=== PATIENT | male | born 1955 | race Caucasian/White ===

== ENCOUNTER 2024-11-16 13:06 | Inpatient (IN) ==
[2024-11-16] MEDS ORDERED: STAT IV Infusion **Titration per Protocol STA ×4 (13:42→17:00)
[2024-11-16] MEDS ORDERED: EPINEPHrine/NSS 4 MG/254 ML BAG IV SCH (13:45)
[2024-11-16] MEDS ORDERED: SODIUM BICARBONATE 8.4% 150 MEQ in WATER, STERILE 1,000 ML IV SCH (14:00)
[2024-11-16] MEDS ORDERED: NOREPINEPHRINE/D5W 4 MG/250 ML PLCT IV SCH (14:00)
[2024-11-16 14:01] LABS: iSTAT Creatinine 1.6 mg/dl (0.6-1.3); iSTAT Hemoglobin 10.2 g/dl (14.0-18.0); iSTAT Ionized Calcium 2.05 mmol/l (1.12-1.32); iSTAT Potassium 3.2 mmol/L (3.3-5.0)
[2024-11-16 14:07] LABS: Basophils # (auto) 0.05 K/uL (0.00-0.20); Basophils % (auto) 0.4 %; Eosinophils % (auto) 0.8 %; Hematocrit (blood only) 44.1 % (42.0-52.0); Hemoglobin 14.9 g/dl (14.0-18.0); Immature Granulocytes # (auto) 0.13 K/uL (0.01-0.20); Immature Granulocytes % (auto) 1.1 %; Lymphocytes # (auto) 3.23 K/uL (1.20-3.40); Lymphocytes % (auto) 26.8 %; Mean Corpuscular Hemoglobin 30.7 pg (25.0-34.0); Mean Corpuscular Hgb Conc 33.8 g/dL (32.0-36.0); Mean Corpuscular Volume 90.7 fL (80.0-100.0); Mean Platelet Volume 10.4 fL (9.4-12.4); Monocytes # (auto) 0.86 K/uL (0.11-0.59); Monocytes % (auto) 7.1 %; Neutrophils # (auto) 7.68 K/uL (1.40-6.50); Neutrophils % (auto) 63.8 %; Platelet Count 185 K/uL (130-400); RDW Coefficient of Variation 12.9 % (11.5-14.5); Red Blood Count 4.86 M/uL (4.70-6.10); White Blood Count 12.05 K/ul (4.8-10.8)
[2024-11-16 14:10] LABS: iSTAT Art Bld Gas Base Excess > 30.0 meg/L (-9-1.8); iSTAT Arterial Blood Gas HCO3 77 meg/L (19-24); iSTAT Arterial Blood Gas pCO2 86 mmHg (35-46); iSTAT Arterial Blood Gas pH 7.56 (7.35-7.45); iSTAT Arterial Blood Gas pO2 302 mmHg (80-95); iSTAT Carbon Dioxide > 50 mmol/L (24-31); iSTAT Hematocrit 23 % (42-52); iSTAT Hemoglobin 7.8 g/dl (14.0-18.0); iSTAT Sodium 174 mmol/L (135-144)
[2024-11-16] MEDS ORDERED: PIPERACILLIN/TAZOBACTAM 4.5 GM/100 ML BAG IV ONE (14:13)
[2024-11-16 14:15] LABS: Alanine Aminotransferase 23 U/L (7-52); Albumin Globulin Ratio 1.7 (0.9-2); Albumin Level 4.2 gm/dl (3.4-5.0); Alkaline Phosphatase 73 U/L (34-104); Anion Gap 16 (3-11); Aspartate Aminotransferase 31 U/L (13-39); BUN Creatinine Ratio 12.4 (10-20); Bilirubin,Total 0.5 mg/dl (0.2-1.0); Blood Urea Nitrogen 20 mg/dl (6-23); Calcium 9.5 mg/dl (8.6-10.3); Carbon Dioxide 17 mmol/L (21-32); Chloride 106 mmol/L (98-107); Globulin 2.5 gm/dl (2.5-4.0); Glucose 274 mg/dl (70-99(Fasting)); Lipase 141 U/L (11-82); Potassium 3.9 mmol/L (3.5-5.1); Sodium 139 mmol/L (136-145); Total Protein 6.7 gm/dl (6.0-8.3)
--- NOTE | 2024-11-16 14:17 | Emergency Department Note ---
Impression & Plan Cardiac arrest, Aortic dissection, JORGE (acute kidney injury), High anion gap metabolic acidosis, Respiratory arrest, Acute pericardial effusion ED Provider Note NAME: LUIS PONCE AGE: 69 SEX: M : 1955 ARRIVES VIA: Ambulance INFORMANT: Patient, EMS and nursing reports, ED PROVIDER(S): Sameer Barr MD CHIEF COMPLAINT: Chest pain, shortness of breath MEDICAL DECISION MAKING: Patient presented due to concern for chest pain shortness of breath. The patient became apneic and did not have a pulse CODE BLUE was called and CPR was initiated by myself at the bedside. Respiratory arrived along with other staff including another physician Dr. Sabillon please refer to his note. ACLS protocols were initiated and the patient did have a line established IV epinephrine ordered in addition to bicarb and calcium. Patient appeared to be in a PEA. ACLS protocols were continued a bedside ultrasound was performed and I did intubate the patient at the bedside without issue. Bedside ultrasound per Dr. Sabillon did show significant pericardial effusion. There was concern that maybe the patient did have a dissection although ultimately not clear. Patient did have pericardiocentesis performed admitted the patient continuing with ACLS protocols and CPR although CPR was paused during the pericardiocentesis due to concerns for large needle and possible harm to staff. Patient was being ventilated during this time. Blood was removed from the pericardium. Patient was noted to be in a disorganized rhythm concerning for V-fib possibly even torsades. The patient was ordered IV amiodarone 300 mg. Patient was subsequently shocked 360 J biphasic. Compressions were resumed. Flexographic Press Operator Solomon Pradhan PA-C also did arrive. Continue protocols initiated along with additional ACLS medications given. Central line was placed in the right groin. Code heart alert was initiated as the patient did have a pulse in an organized rhythm. Epi drip was ordered. Patient did have an art line placed and prior to this the patient was also ordered Levophed drip. The patient's blood pressure was titrated to improve the patient's MAPs to 65. Bicarb drip also started. Patient does have sluggish pupillary response. Repeat ultrasounds showed improvement in the pericardial effusion and no evidence of significant tamponade pathology compared to prior. Patient did not have any evidence of obvious free fluid within the abdomen. RV did not appear to be dilated and thus PE was thought to be less likely. Discussion was had with Dr. Hampton and the patient was to be taken to the Customer Contact Representative. Additional management deferred to integration software developer and interventional cardiology services. Blood work showed white count of 11.9 with a hemoglobin of 10.5. Platelet count unremarkable. Patient with gas of 7.26. pCO2 of 302. pCO2 of 43. Potassium of 3.2. Creatinine 1.6. Troponin of 1300. Per review of notes after patient taken to Customer Contact Representative patient did have pericardial drain and fluid removed and findings concerning for aortic dissection. Patient transferred to [facility]. Critical Care: I have personally spent 95 minutes of critical care time in direct management of this patient. This includes bedside care, interpretation of diagnostic studies, and testing, discussion with consultants, patient, and family members, and other require inpatient management activities. This 95 minutes is in excess of all separately billable procedures. Procedures: Cardioversion performed by Dr. Barr Indication: V-fib Consent was implied and emergent given that the patient was pulseless and apneic. Patient noted to be in likely V-fib on the monitor. The biphasic defibrillator was set to 360 joules of energy. After confirmation of "all clear" safety check the synchronized shock was delivered. The patient was no longer in V-fib but in PEA and compressions were resumed. Endotracheal Intubation performed by Dr. Barr Indication: Hypoxemic respiratory failure, respiratory failure, cardiac arrest The patient was on hypoxic via NRB prior to the procedure. Suction, airway equipment, RSI drugs, respiratory equipment, and appropriate personnel were prepared prior to the initiation of the procedure. The airway was easily visualized utilizing a MAC 3 video laryngoscope. A 7.5 size ETT tube was placed atraumatically to 23 cm using standard technique. The cuff inflated without signs of malfunction. There were bilateral breath sounds, positive colormetric change, no gastric sounds, a good capnography waveform, and post procedure pulse oximetry was 99%. Post intubation sedation and paralysis was deferred to intensive care team. There were no complications. Chest compressions performed by Dr. Barr Indication: Cardiac arrest In standard fashion the patient did undergo chest compressions by myself for 2 minutes until pulse check. This was repeated by myself a second time with during this resuscitation. Limited Point of Care FAST Ultrasound performed by me: Indication: Cardiac arrest Findings: Limited cardiac ultrasonography via subxiphoid and parasternal long view showed cardiac wall motion activity, moderate pericardial effusion without tamponade. Limited chest ultrasound revealed bilateral lung sliding. Limited abdominal ultrasound revealed no free fluid within Morrisons pouch, splenorenal space, or the pouch of Mark. Discussion w/ other healthcare providers: Solomon Pradhan PA-C and Dr. Nelson intensive care unit Dr. Hampton tank truck mechanic Dr. Sabillon Prior /Outside records reviewed: Outside records were also obtained via case management recent office visit on September [address] Torrez history of hypertension hyperlipidemia lip melanoma lung cancer AAA and allergic rhinitis. Differential diagnosis: Cardiac ischemia, aortic dissection, pulmonary embolism, pneumothorax, pneumonia, pericarditis, myocarditis, GERD, cholecystitis, pancreatitis, musculoskeletal, as well as other pathologies were considered. Diagnostics, as interpreted by me: ECG: Normal sinus rhythm, rate of 81, normal intervals, normal axis no obvious ST elevations. Cardiac monitoring: An order was placed for continuous cardiac monitoring. The monitor shows a rate of 45 with PEA rhythm. Patient was placed on pulse oximetry Medical decision rules: None Imaging studies: I informally interpreted the patient's chest x-ray does show endotracheal tube present without obvious pneumothorax with formal report to follow. HPI: Very limited history. Patient had presented due to concern for shortness of breath and reportedly had called his boss saying that he felt that he was dying. Upon presenting to the room the patient appeared hypoxic with difficulty with breathing. The patient then became apneic and was pulseless. Patient was reportedly hypoxic on room air for EMS and was placed on a nonrebreather. Nursing did report that the patient reportedly had a pressure 126/102 for EMS with an SpO2 of 79%. Family did give the patient 324 of aspirin prior to arrival. Additional history obtained after the resuscitation with the patient had a pulse back but the patient reportedly was fine this morning of been out shopping but then when he was home he called his as well as his boss stating that he felt like he was going to and felt very short of breath. Patient reportedly did complain of chest pain. Patient does have reported prior history of AAA of the abdomen. No issues this morning and the patient reportedly had no symptoms prior. Outside records were also obtained via case management recent office visit on September [address] Rios history of hypertension hyperlipidemia lip melanoma lung cancer AAA and allergic rhinitis. PAST MEDICAL HISTORY: Hypertension, hyperlipidemia, lip melanoma, lung cancer, AAA PAST SURGICAL HISTORY: Unable to obtain secondary to clinical condition SOCIAL HISTORY: Unable to obtain secondary to clinical condition HOME MEDICATIONS: See Below ALLERGIES: See Below VITALS: See Below PHYSICAL EXAMINATION: GENERAL: Severe distress, nonrebreather in place. Cyanotic in appearance. EYE EXAM: Normal conjunctiva. PERRL, no anisocoria and EOM's grossly intact w/o pain. OROPHARYNX: Dry mucus membranes, grossly normal dentition. NECK: Trachea midline, no stridor. Supple, no nuchal rigidity, no adenopathy, non-tender. No signs of meningismus. FROM of the neck with good chin to chest and neck extension. LUNGS: Clear to auscultation. Normal chest wall mechanics. HEART: Bradycardic, no MRG. ABDOMEN: Abdomen soft, non-tender, no masses, no rebound or guarding. BACK: No CVA TTP. SKIN: No rashes and no bruising. UPPER EXTREMITIES: Upper extremities are grossly normal. LOWER EXTREMITIES: Grossly normal, no edema. NEURO EXAM: Does not open eyes to voice, moaning. Moves all 4 extremities. Past Med/Surg History Problem List (Updated 11/16/24 @ 19:51 by Sameer Barr MD) Acute pericardial effusion (Acute) Respiratory arrest (Acute) Cardiac arrest (Acute) Normocytic anemia High anion gap metabolic acidosis (Acute) COPD with emphysema JORGE (acute kidney injury) (Acute) Aortic dissection (Acute) Social History Smoking Status: Unknown if ever smoked Preferred Language: Swedish Pilot Instructor Required: No Beliefs That Will Affect Care: None Current Living Situation: Spouse Other Information That Helps Us Care for You: No Feels Safe at Home: Yes Safety Concerns: Feels Safe At This Time Results & Data (ED) Vital Signs Vital Signs - 24 hr 11/16/24 13:00 11/16/24 13:00 11/16/24 13:32 Temperature 35.6 C L Temperature Source Rectal Pulse Rate 91 H 0 L Pulse Rate from SpO2 Sensor Respiratory Rate Blood Pressure Blood Pressure Mean Pulse Oximetry Oxygen Delivery Method Non-rebreather Oxygen Flow Rate 15 Fraction of Inspired Oxygen Sepsis Recent Fever Within 48 Hours No Sepsis New/Unexplained Change in Mental Status N/A Sepsis Action Taken by Nursing No Action Required 11/16/24 13:36 11/16/24 13:39 11/16/24 13:42 Temperature Temperature Source Pulse Rate 41 L 63 69 Pulse Rate from SpO2 Sensor Respiratory Rate 17 Blood Pressure Blood Pressure Mean Pulse Oximetry Oxygen Delivery Method Oxygen Flow Rate Fraction of Inspired Oxygen Sepsis Recent Fever Within 48 Hours Sepsis New/Unexplained Change in Mental Status Sepsis Action Taken by Nursing 11/16/24 13:47 11/16/24 13:49 11/16/24 13:49 Temperature Temperature Source Pulse Rate Pulse Rate from SpO2 Sensor Respiratory Rate 24 Blood Pressure 60/41 L 60/41 L Blood Pressure Mean 46 46 Pulse Oximetry Oxygen Delivery Method Oxygen Flow Rate Fraction of Inspired Oxygen 100 Sepsis Recent Fever Within 48 Hours Sepsis New/Unexplained Change in Mental Status Sepsis Action Taken by Nursing 11/16/24 13:49 11/16/24 13:51 11/16/24 13:55 Temperature Temperature Source Pulse Rate 58 L Pulse Rate from SpO2 Sensor Respiratory Rate 23 Blood Pressure 60/41 L 60/50 L Blood Pressure Mean 46 54 Pulse Oximetry Oxygen Delivery Method Oxygen Flow Rate Fraction of Inspired Oxygen Sepsis Recent Fever Within 48 Hours Sepsis New/Unexplained Change in Mental Status Sepsis Action Taken by Nursing 11/16/24 13:55 11/16/24 13:55 11/16/24 13:57 Temperature Temperature Source Pulse Rate 71 Pulse Rate from SpO2 Sensor 93 H Respiratory Rate 26 H Blood Pressure 60/50 L 60/50 L Blood Pressure Mean 54 54 Pulse Oximetry 51 L Oxygen Delivery Method Oxygen Flow Rate Fraction of Inspired Oxygen Sepsis Recent Fever Within 48 Hours Sepsis New/Unexplained Change in Mental Status Sepsis Action Taken by Nursing 11/16/24 14:00 11/16/24 14:01 11/16/24 14:10 Temperature Temperature Source Pulse Rate 66 Pulse Rate from SpO2 Sensor Respiratory Rate 21 Blood Pressure 84/58 L 80/52 L Blood Pressure Mean 63 64 Pulse Oximetry Oxygen Delivery Method Oxygen Flow Rate Fraction of Inspired Oxygen Sepsis Recent Fever Within 48 Hours Sepsis New/Unexplained Change in Mental Status Sepsis Action Taken by Nursing 11/16/24 14:10 11/16/24 14:12 Temperature Temperature Source Pulse Rate 66 Pulse Rate from SpO2 Sensor 66 Respiratory Rate 18 Blood Pressure 80/52 L Blood Pressure Mean 64 Pulse Oximetry 100 Oxygen Delivery Method Oxygen Flow Rate Fraction of Inspired Oxygen Sepsis Recent Fever Within 48 Hours Sepsis New/Unexplained Change in Mental Status Sepsis Action Taken by [facility] Medications Current Medication List: was personally reviewed by me Laboratory Data Attestation: I reviewed the patient's lab results. 11/16/24 15:54 11/16/24 15:54 Lab Results 11/16/24 11/16/24 11/16/24 Range/Units 13:15 13:41 13:46 WBC 12.05 H (4.8-10.8) K/ul RBC 4.86 (4.70-6.10) M/uL Hgb 14.9 (14.0-18.0) g/dl POC Hgb 10.2 L (14.0-18.0) g/dl Hct 44.1 (42.0-52.0) % POC Hct 30 L (42-52) % MCV 90.7 (80.0-100.0) fL MCH 30.7 (25.0-34.0) pg MCHC 33.8 (32.0-36.0) g/dL RDW Std Deviation 43.0 (36.4-46.3) fL RDW Coeff of Navarro 12.9 (11.5-14.5) % Plt Count 185 (130-400) K/uL MPV 10.4 (9.4-12.4) fL Immature Gran % (Auto) 1.1 % Neut % (Auto) 63.8 % Lymph % (Auto) 26.8 % [place] % (Auto) 7.1 % Eos % (Auto) 0.8 % Baso % (Auto) 0.4 % Neut # (Auto) 7.68 H (1.40-6.50) K/uL Lymph # (Auto) 3.23 (1.20-3.40) K/uL [place] # (Auto) 0.86 H (0.11-0.59) K/uL Eos # (Auto) 0.10 (0.00-0.50) K/uL Baso # (Auto) 0.05 (0.00-0.20) K/uL Immature Gran # (Auto) 0.13 (0.01-0.20) K/uL POC pH (7.35-7.45) POC pCO2 (35-46) mmHg POC pO2 (80-95) mmHg POC HCO3 (19-24) rosa/L POC Base Excess (-9-1.8) rosa/L POC ABG O2 Sat (90-95) % POC Sodium 136 (135-144) mmol/L Sodium 139 (136-145) mmol/L POC Potassium 3.2 L (3.3-5.0) mmol/L Potassium 3.9 (3.5-5.1) mmol/L POC Chloride 105 (101-112) mmol/L Chloride 106 (98-107) mmol/L Carbon Dioxide 17 L (21-32) mmol/L POC Total CO2 21 L (24-31) mmol/L Anion Gap 16 H (3-11) POC Anion Gap 15.0 L (16-25) mmol/L POC BUN 20 H (7-18) mg/dl BUN 20 (6-23) mg/dl Creatinine 1.61 H (0.6-1.4) mg/dl POC Creatinine 1.6 H (0.6-1.3) mg/dl Est Cr Clr Drug Dosing Not Reportable eGFR 46.58 BUN/Creatinine Ratio 12.4 (10-20) Glucose 274 H (70-99(Fasting)) mg/dl POC Glucose (other) 381 H* (70-99) mg/dl Calcium 9.5 (8.6-10.3) mg/dl POC Ioniz Calcium Leida 2.05 H* (1.12-1.32) mmol/l Total Bilirubin 0.5 (0.2-1.0) mg/dl AST 31 (13-39) U/L ALT 23 (7-52) U/L Alkaline Phosphatase 73 (34-104) U/L Troponin I High Sens 54.9 H* (0-20) pg/ml Total Protein 6.7 (6.0-8.3) gm/dl Albumin 4.2 (3.4-5.0) gm/dl Globulin 2.5 (2.5-4.0) gm/dl Albumin/Globulin Ratio 1.7 (0.9-2) Lipase 141 H (11-82) U/L Blood Type O Positive Antibody Screen NEGATIVE Crossmatch See Detail 11/16/24 Range/Units 13:57 WBC (4.8-10.8) K/ul RBC (4.70-6.10) M/uL Hgb (14.0-18.0) g/dl POC Hgb 7.8 L (14.0-18.0) g/dl Hct (42.0-52.0) % POC Hct 23 L (42-52) % MCV (80.0-100.0) fL MCH (25.0-34.0) pg MCHC (32.0-36.0) g/dL RDW Std Deviation (36.4-46.3) fL RDW Coeff of Navarro (11.5-14.5) % Plt Count (130-400) K/uL MPV (9.4-12.4) fL Immature Gran % (Auto) % Neut % (Auto) % Lymph % (Auto) % [place] % (Auto) % Eos % (Auto) % Baso % (Auto) % Neut # (Auto) (1.40-6.50) K/uL Lymph # (Auto) (1.20-3.40) K/uL [place] # (Auto) (0.11-0.59) K/uL Eos # (Auto) (0.00-0.50) K/uL Baso # (Auto) (0.00-0.20) K/uL Immature Gran # (Auto) (0.01-0.20) K/uL POC pH 7.56 H* (7.35-7.45) POC pCO2 86 H (35-46) mmHg POC pO2 302 H (80-95) mmHg POC HCO3 77 H (19-24) rosa/L POC Base Excess > 30.0 H (-9-1.8) rosa/L POC ABG O2 Sat 100.0 H (90-95) % POC Sodium 174 H* (135-144) mmol/L Sodium (136-145) mmol/L POC Potassium 3.0 L (3.3-5.0) mmol/L Potassium (3.5-5.1) mmol/L POC Chloride (101-112) mmol/L Chloride (98-107) mmol/L Carbon Dioxide (21-32) mmol/L POC Total CO2 > 50 H* (24-31) mmol/L Anion Gap (3-11) POC Anion Gap (16-25) mmol/L POC BUN (7-18) mg/dl BUN (6-23) mg/dl Creatinine (0.6-1.4) mg/dl POC Creatinine (0.6-1.3) mg/dl Est Cr Clr Drug Dosing eGFR BUN/Creatinine Ratio (10-20) Glucose (70-99(Fasting)) mg/dl POC Glucose (other) (70-99) mg/dl Calcium (8.6-10.3) mg/dl POC Ioniz Calcium Leida (1.12-1.32) mmol/l Total Bilirubin (0.2-1.0) mg/dl AST (13-39) U/L ALT (7-52) U/L Alkaline Phosphatase (34-104) U/L Troponin I High Sens (0-20) pg/ml Total Protein (6.0-8.3) gm/dl Albumin (3.4-5.0) gm/dl Globulin (2.5-4.0) gm/dl Albumin/Globulin Ratio (0.9-2) Lipase (11-82) U/L Blood Type Antibody Screen Crossmatch Administered Medications Discontinued Medications Amiodarone HCl/Dextrose (Amiodarone 360mg / 200ml D5w) Confirm Administered Dose 360 mg IV .[facility]-MED ONE Stop: 11/16/24 14:13 Last Admin: 11/16/24 16:04 Dose: 360 mg Documented By: NICOLE Co-signed By: RAF Fentanyl Citrate (Fentanyl Citrate Pf 100 Mcg/2 Ml Vial) Confirm Administered Dose 100 mcg .ROUTE .[facility]-MED ONE Stop: 11/16/24 14:00 Last Admin: 11/16/24 16:02 Dose: 25 mcg Documented By: NICOLE Heparin Sodium (Porcine) (Heparin (Porcine) 1000 Unit/Ml 10 Ml (Customer Contact Representative Use Only)) Confirm Administered Dose 10,000 units .ROUTE .[facility]-MED ONE Stop: 11/16/24 14:00 Last Admin: 11/16/24 16:03 Dose: Not Given Documented By: NICOLE Heparin Sodium/Sodium Chloride (Heparin In Nss Infusion 1000 Unit/500 Ml (2 U/Ml) Bag) Confirm Administered Dose 3,000 units IV .STK-MED ONE Stop: 11/16/24 14:00 Last Admin: 11/16/24 15:07 Dose: 3,000 units Documented By: MARTY Ioversol (Optiray 350) Confirm Administered Dose 1 ml .ROUTE .STK-MED ONE Stop: 11/16/24 14:00 Last Admin: 11/16/24 16:03 Dose: 120 ml Documented By: MARTY Ioversol (Optiray 320 125ml) 119 ml IV ONCE ONE Stop: 11/16/24 16:20 Last Admin: 11/16/24 16:19 Dose: 119 ml Documented By: AMINTA Midazolam HCl (Midazolam Hcl 1 Mg/Ml 2ml Vial) Confirm Administered Dose 2 mg .ROUTE .STK-MED ONE Stop: 11/16/24 14:00 Last Admin: 11/16/24 16:03 Dose: 1 mg Documented By: NICOLE Nicardipine HCl (Nicardipine Hcl Inj 2.5 Mg/Ml 10 Ml Amp) Confirm Administered Dose 25 mg .ROUTE .STK-MED ONE Stop: 11/16/24 14:01 Last Admin: 11/16/24 16:04 Dose: 25 mg Documented By: MARTY Nitroglycerin/Dextrose (Nitroglycerin/D5w 100mcg/Ml 20ml Syr) Confirm Administered Dose 2,000 mcg .ROUTE .STK-MED ONE Stop: 11/16/24 14:00 Last Admin: 11/16/24 16:03 Dose: 2,000 mcg Documented By: MARTY Imaging Data Radiologist's Impression: Chest X-Ray 11/16/24 13:42 PORTABLE SUPINE AP CHEST RADIOGRAPH CLINICAL HISTORY: Chest pain, nonspecific COMPARISON STUDY: No previous studies for comparison. FINDINGS: Tip of endotracheal tube is 3.3 cm above the doron. No pneumothorax is identified on supine exam. No pleural effusion is identified. Cardiac size is normal. Surgical staple line projects over the right hilum. Abnormal contour of the right mediastinal, possibly representing the ascending aorta or right hilum is noted. There is also prominence of the left mediastinal contour, superior to the hilum. Mild interstitial thickening is present without overt pulmonary edema. IMPRESSION: 1. Tip of endotracheal tube 3.3 cm above the doron. 2. Abnormal mediastinal contours, as described above. These may be vascular in etiology although lymphadenopathy could appear similar. CTA of the chest is recommended for further evaluation. 3. Pulmonary vascular congestion without overt pulmonary edema. ACT 112: Negative or not required by law. Electronically signed by: Sherman Siddiqui M.D. 11/16/2024 2:26 PM Discharge Plan Visit Data Chief Complaint: Chest Pain Stated Complaint: CHEST PAIN ED Provider: Sameer Barr Discharge Problem: Cardiac arrest, Aortic dissection, JORGE (acute kidney injury), High anion gap metabolic acidosis, Respiratory arrest, Acute pericardial effusion Patient Disposition: Admitted As Inpatient Discharge Problem: Aortic dissection Qualifiers: Aortic location: thoracoabdominal aorta Qualified Code(s): I71.03 - Dissection of thoracoabdominal aorta
--- NOTE | 2024-11-16 14:26 | Procedure Note ---
Procedure Note Date of Service November 16, 2024 Procedure: Femoral Central Line Placement Attending: Dr. Nelson APC: Solomon Pradhan PA-C Indication: Central Drug Administration, Poor Venous Access, Multiple Lab Draws Necessary, etc. Anesthesia: None Emergent consent implied in the setting of actively coding patient with poor peripheral access, need for blood draws, need for resuscitative medications, etc. Should be noted that line was placed in suboptimal sterile conditions in a patient with active extremis and need for emergent central access. A time-out was completed verifying correct patient, procedure, site, positioning, and implants(s) or special equipment if applicable. Patient's RIGHT Groin was cleansed and draped in the typical sterile fashion using Chloraprep. The Femoral Vein and Femoral Artery were identified using ultrasound. The Femoral Vein was cannulated under direct ultrasound guidance using an introducer needle on a syringe. Good venous blood return was maintained prior to removal of syringe from introducer needle. Using Seldinger Technique, a guide wire was advanced through the introducer needle without resistance. The introducer needle was removed and ultrasound images were obtained of the guide wire within the Femoral Vein and saved to the patient's medical record. A small incision was made in penetrating fashion at the guide wire insertion site utilizing an 11 blade scalpel. The dilator was advanced to the vessel without resistance. The dilator was exchanged for the triple lumen catheter which was advanced into the vessel without resistance. The guide wire was removed intact from the catheter without issue. Claves were placed on each catheter tip with confirmation of good blood flow from each lumen. Each port was easily flushed with sterile saline. The catheter was placed at the hub and sutured in place. BioPatch was applied to the catheter and a sterile Tegaderm dressing was applied over the catheter with careful attention to sterility. Patient tolerated procedure well. No immediate complications were met. Images obtained are saved for permanent record Procedural Ultrasound Guidance: Procedure Date: 11/16/2024 Indication: CODE BLUE, Poor peripheral access, need for lab draws, etc. Attending: Dr. Nelson APC: Solomon Pradhan PA-C Artery AND Vein visualized: YES Compressible Vein: YES Guidewire or Short Catheter seen in vein prior to dilation: YES Line confirmed in Vein with ultrasound: YES Images obtained are saved for permanent record. [facility] [place] Procedure Codes (Charges) Tubes, Drains, and Vasc Access Procedure 1: Tubes, Drains, and Vasc Access: [id number] Insertion Of Non-tunneled Catheter Age 7 Yrs> Coding CPT Codes Tubes, Drains, and Vasc Access - Tubes, Drains, and Vasc Access: [id number] Insertion Of Non-tunneled Catheter Age 7 Yrs> ([id number]) Additional Codes Date of Service ([email or web address])
--- NOTE | 2024-11-16 14:28 | XRay Report ---
PORTABLE SUPINE AP CHEST RADIOGRAPH CLINICAL HISTORY: Chest pain, nonspecific COMPARISON STUDY: No previous studies for comparison. FINDINGS: Tip of endotracheal tube is 3.3 cm above the doron. No pneumothorax is identified on supin e exam. No pleural effusion is identified. Cardiac size is normal. Surgical staple line projects over the right hilum. Abnormal contour of the right mediastinal, possibly representing the ascending aort a or right hilum is noted. There is also prominence of the left mediastinal contour, superior to the hilum. Mild interstitial thickening is present without overt pulmonary edema. IMPRESSION: 1. Tip of endotracheal tube 3.3 cm above the doron. 2. Abnormal mediastinal contours, as described above. These may be vascular in etiology although lymp hadenopathy could appear similar. CTA of the chest is recommended for further evaluation. 3. Pulmonary vascular congestion without overt pulmonary edema. ACT 112: Negative or not required by law. Electronically signed by: Sherman Siddiqui M.D. 11/16/2024 2:26 PM
--- NOTE | 2024-11-16 14:28 | Procedure Note ---
Procedure Note Date of Service November 16, 2024 Procedure: Arterial Line Placement Attending: Dr. Nelson APC: Solomon Pradhan PA-C Indication: Hemodynamic monitoring Anesthesia: None Emergent Consent implied in the setting of active extremis and need for close hemodynamic monitoring, ABG monitoring, frequent lab draws, etc. A time-out was completed verifying correct patient, procedure, site, positioning, and implant(s) or special equipment if applicable. Gregory's test was performed to ensure adequate perfusion. Patient's LEFT wrist was prepped and draped in the usual sterile fashion. Ultrasound guidance was used to aid needle placement. An 18 g Arrow arterial line was introduced into the LEFT Radial artery. Catheter was threaded, and the needle was removed with appropriate blood return. Good waveform was observed. The patient tolerated the procedure well. Confirmation of placement with ultrasound. Blood Loss: Minimal Complications: None Procedural Ultrasound Guidance: Procedure Date: 11/16/2024 Indication: Hemodynamic Monitoring, Frequent ABGs/Lab draws. Attending: Dr. Nelson APC: Solomon Pradhan PA-C Artery Identified: YES Line confirmed in Artery with ultrasound: YES Complications: NONE Patient tolerated procedure: [facility] Procedure Codes (Charges) Tubes, Drains, and Vasc Access Procedure 1: Tubes, Drains, and Vasc Access: [id number] Arterial Cath/Cannulation Sampling/Monitoring/Transfusion Coding CPT Codes Tubes, Drains, and Vasc Access - Tubes, Drains, and Vasc Access: [id number] Arterial Cath/Cannulation Sampling/Monitoring/Transfusion ([id number]) Additional Codes Date of Service (PG.SURGERY)
[2024-11-16 14:35] LABS: Troponin I High Sensitivity 54.9 pg/ml (0-20)
[2024-11-16] MEDS ORDERED: VASOPRESSIN 20 UNITS in SODIUM CHLORIDE 0.9% 100 ML IV SCH (14:45)
[2024-11-16] MEDS ORDERED: SODIUM CHLORIDE 0.9% 50 ML IV PRN (15:31)
[2024-11-16] MEDS ORDERED: SODIUM CHLORIDE 0.9% 100 ML IV PRN (15:31)
[2024-11-16] MEDS: fentaNYL citrate PF 100 MCG/2 ML VIAL ONE (16:02)
--- NOTE | 2024-11-16 16:02 | Emergency Department Note ---
ED Visit Note Came into the patient's room during CODE BLUE to assist Dr. Barr. Patient was actively coding while Dr. Barr was resuscitating him. Dr. Barr was doing airway and I placed the ultrasound probe on the patient's chest to look for cardiac activity. There is a large pericardial effusion. During the code a blind pericardiocentesis was attempted and 10 cc of blood removed. After Dr. Barr was able to get a pulse back on the patient intubate the patient repeat pericardiocentesis performed x 2 which removed 30 cc of blood each time. After the last pericardiocentesis in conjunction with Dr. Barr's resuscitative measures, the patient was stabilized with a good oxygen saturation on the ventilator stable heart rate and rhythm and blood pressure that was improving. The patient was evaluated by Dr. Hampton at bedside there is still some pericardial effusion present when Dr. Hampton arrived however it was improved and the right ventricular did appear off and not collapsed. Dr. Hampton stated to take the patient to the Video Rental Clerk for a emergent pericardial drain or window as well as catheterization. See Dr. Barr's notes for full course. Procedure note: Pericardiocentesis Indication: Large pericardial effusion during cardiac arrest Physician: Ridge Description: Pericardial effusion was viewed with bedside ultrasound best viewed in the subxiphoid view but also seen in the apical view. Large spinal needle was obtained and inserted beneath the xiphoid process directed towards the patient's left shoulder with continuous aspiration. Blood was returned. This was performed a total of 3 times the first time while the patient was actively being coded and 10 cc of blood was obtained, the second 2 x 30 cc of blood were obtained each time. Disposition: Cardiac Video Rental Clerk. .
[2024-11-16] MEDS: OPTIRAY 350 ONE (16:03)
[2024-11-16] MEDS: NITROGLYCERIN/D5W 100MCG/ML 20ML SYR ONE (16:03)
[2024-11-16] MEDS: HEPARIN (PORCINE) 1000 UNIT/ML 10 ML (CATH LAB USE ONLY) ONE (16:03)
[2024-11-16] MEDS: MIDAZOLAM HCL 1 MG/ML 2ML VIAL ONE (16:03)
[2024-11-16] MEDS: niCARdipine HCL INJ 2.5 MG/ML 10 ML AMP ONE (16:04)
[2024-11-16] MEDS: AMIODARONE 360MG / 200ML D5W IV ONE (16:04)
[2024-11-16 16:12] LABS: iSTAT Arterial Blood Gas HCO3 19 meg/L (19-24); iSTAT Arterial Blood Gas pCO2 43 mmHg (35-46); iSTAT Arterial Blood Gas pH 7.26 (7.35-7.45); iSTAT Arterial Blood Gas pO2 380 mmHg (80-95); iSTAT Carbon Dioxide 20 mmol/L (24-31); iSTAT Hematocrit 31 % (42-52); iSTAT Hemoglobin 10.5 g/dl (14.0-18.0); iSTAT Potassium 2.9 mmol/L (3.3-5.0); iSTAT Sodium 141 mmol/L (135-144)
[2024-11-16 16:13] LABS: iSTAT Arterial Blood Gas HCO3 19 meg/L (19-24); iSTAT Arterial Blood Gas pCO2 41 mmHg (35-46); iSTAT Arterial Blood Gas pH 7.27 (7.35-7.45); iSTAT Arterial Blood Gas pO2 371 mmHg (80-95); iSTAT Carbon Dioxide 20 mmol/L (24-31); iSTAT Hematocrit 31 % (42-52); iSTAT Hemoglobin 10.5 g/dl (14.0-18.0); iSTAT Sodium 140 mmol/L (135-144)
[2024-11-16 16:15] LABS: Hematocrit (blood only) 34.3 % (42.0-52.0); Hemoglobin 11.4 g/dl (14.0-18.0); Mean Corpuscular Hemoglobin 30.5 pg (25.0-34.0); Mean Corpuscular Hgb Conc 33.2 g/dL (32.0-36.0); Mean Corpuscular Volume 91.7 fL (80.0-100.0); Mean Platelet Volume 9.9 fL (9.4-12.4); Platelet Count 143 K/uL (130-400); RDW Coefficient of Variation 13.2 % (11.5-14.5); Red Blood Count 3.74 M/uL (4.70-6.10); White Blood Count 11.99 K/ul (4.8-10.8)
[2024-11-16] MEDS: OPTIRAY 320 125ml IV ONE (16:19)
[2024-11-16] MEDS ORDERED: ICU Protocol for HYPERglycemia SCH (16:30)
--- NOTE | 2024-11-16 16:38 | Critical Care Consultation ---
Date of Consultation November 16, 2024 Assessment & Plan (1) Aortic dissection: (2) JORGE (acute kidney injury): (3) COPD with emphysema: (4) High anion gap metabolic acidosis: (5) Normocytic anemia: Plan Reason Critically Ill: 69-year-old male past medical history of COPD was admitted to the hospital because of chest pain and shortness of breath He had a cardiac arrest in the ED, he was taken to [facility] where he did have pericardial effusion which was drained CTA chest 11/16/2024 personally reviewed: Centrilobular emphysema appreciated bilaterally Type B dissection appreciated going from the ascending aorta into the descending aorta and probably into abdominal aorta as well No significant mediastinal lymphadenopathy Neuro - [facility] ICU: Unable to assess --Patient did have cardiac arrest in the hospital CPR was started within 2 minutes Unfortunately pupils are dilated and very sluggish response Patient is breathing over the went Cardiac - --S/p cardiac arrest Secondary to type a dissection Continue with vasopressor support to keep MAP greater than 65 -- Type a aortic dissection Dissection seems to going into the abdominal aorta as well Goal is to have heart rate less than 60 and SBP around 100, it will be difficult as the patient needs vasopressor support but we will try our best Cardiothoracic surgery at [place] have accepted the patient and will be transferred --Pericardial effusion Likely secondary to type a aortic dissection Pericardial drain is in place but is not open, if patient has tamponade like physiology then it can be open and pericardial fluid drained Respiratory - -- VDRF Likely secondary to cardiac arrest Continue with ventilatory support Keep RASS -1 Daily sedation holidays and SBT's Chlorhexidine mouthwash GI - -- Elevated lipase I do not think patient has acute pancreatitis Cardiac arrest can also give elevated lipase levels RENAL/LYTES - -- JORGE on CKD The aortic dissection is involving the renal arteries as well which could be one of the reasons for JORGE Monitor BUN/creatinine Avoid nephrotoxic medications Strict ins and outs ENDO - -- ICU hypoglycemia protocol HEME - -- Normocytic anemia Monitor H&H ID - -- No clear source of infection --Prophylaxis VTE: IPC GI: None Lines: Right femoral TLC, left femoral arterial Diet: N.p.o. Plan: Continue with vasopressor support try to keep heart rate between 50 and 60, SBP 100. Will try to titrate down on epi and nor epi gradually Follow-up ABG Potassium being replaced. Follow-up magnesium and phosphorus Patient is hyperglycemic, will start him on non-DKA insulin drip Patient's care was coordinated and discussed with interventional cardiology, cardiology. I have personally spent 68 minutes of critical care time in the direct management of this patient. This is a life/limb threatening event. This includes time spent evaluating patient, direct bedside care, chart review, placing orders, interpretation of diagnostic studies, discussion with consultants, patient, and family members, as well as other required patient management activities. This time is exclusive of all separately billable procedures, and teaching time and separate from and in addition to any other critical care service time. 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 Maintaining his blood pressure systolic in the 110s, heart rate was in the mid 60s when he came to the ICU He was breathing over the vent but he was double triggering. He was hypothermic. On the way patient did have a CTA chest done, I personally looked at the images and there seems to be titrated dissection going into the abdominal aorta and into the renal arteries. Patient does seems to have COPD with emphysema as well. Review of Systems 2 Review of Systems: Unobtainable due to endotracheal tube Physical Exam 2 Physical Exam: Constitutional: No acute distress HEENT: Pupils are dilated bilaterally with minimal sluggish response Respiratory system: Decreased air entry bilaterally, no wheeze, rhonchi, positive crackles bilaterally CVS: S1-S2 positive, positive 2 out of 6 systolic murmur best at aorta Abdomen: Soft, nontender, nondistended, positive bowel sounds x4 Extremities: +2 pulses bilaterally radialis/ dorsalis pedis, no cyanosis, no edema Neuro: Sedated, breathing over the vent, trying to move the right extremity, does not follow any commands Psych: Unable to assess G/U: Positive Abrams Skin: no rashes, warm and dry Lymphatic: no cervical or axillary lymphadenopathy Results & Data Results & Data Vital Signs (Past 12 Hours) Vital Signs Temp Pulse Resp O2 Del Method O2 Flow Rate FiO2 11/16/24 13:47 24 100 11/16/24 13:39 63 11/16/24 13:36 41 L 11/16/24 13:32 0 L 11/16/24 13:00 Non-rebreather 15 11/16/24 13:00 35.6 C L 91 H Laboratory Results 11/16/24 15:54 Coding Level of Care Code 26203 CRITICAL CARE 1ST 30-74M Diagnoses Aortic dissection I71.00 JORGE (acute kidney injury) N17.9 COPD with emphysema J43.9 High anion gap metabolic acidosis E87.29 Normocytic anemia D64.9
--- NOTE | 2024-11-16 16:42 | CT Scan Report ---
EXAM: CT Head Without Intravenous Contrast INDICATION: Arrest. TECHNIQUE: Axial computed tomography images of the head/brain without intravenous contrast. Sagittal and/or coronal reformats are provided. Sagittal and coronal reformatted images were created and reviewed. This CT exam was performed using one or more of the following dose reduction techniques: automated exposure control, adjustment of the mA and/or kV according to patient size, and/or use of iterative reconstruction technique. COMPARISON: No relevant prior studies available. FINDINGS: Limitations: None. Brain and extra-axial spaces: No abnormality noted. No hemorrhage. No significant white matter disease. No edema. No ventriculomegaly. Bones/joints: No acute changes. Soft tissues: No significant abnormality noted. Vasculature: No acute abnormality noted. Sinuses: No layering fluid in the visualized portions of the paranasal sinuses. Mastoid air cells: No mastoid effusion. Orbits: No significant abnormality noted. IMPRESSION: No abnormality noted. ACT 112: Negative or not required by law. Electronically signed by Carolyn Crespo 11-16-2024 4:42 PM
[2024-11-16 16:47] LABS: INR 1.8 (0.9-1.1); Partial Thromboplastin Ratio 2.2; Partial Thromboplastin Time 58 Seconds (21-31); Prothrombin Time 18.6 Seconds (9.0-12.0)
[2024-11-16 16:48] LABS: Anion Gap 15 (3-11); BUN Creatinine Ratio 13.7 (10-20); Blood Urea Nitrogen 22 mg/dl (6-23); Calcium 9.8 mg/dl (8.6-10.3); Carbon Dioxide 21 mmol/L (21-32); Chloride 106 mmol/L (98-107); Glucose 461 mg/dl (70-99(Fasting)); Potassium 3.2 mmol/L (3.5-5.1); Sodium 142 mmol/L (136-145)
--- NOTE | 2024-11-16 16:50 | CT Scan Report ---
EXAM: CT Angiography Chest Without and With Intravenous Contrast INDICATION: Arrest. Evaluate for dissection. TECHNIQUE: Axial computed tomographic angiography images of the chest without and with intravenous contrast. Sagittal and coronal reformatted images were created and reviewed. This CT exam was performed using one or more of the following dose reduction techniques: automated exposure control, adjustment of the mA and/or kV according to patient size, and/or use of iterative reconstruction technique. MIP reconstructed images were created and reviewed. CONTRAST: 119ml of Optiray 320 was administered intravenously. COMPARISON: No relevant prior studies available. FINDINGS: Pulmonary arteries: No pulmonary embolus noted. Aorta: Type A aortic dissection beginning at the root extending into the left subclavian and carotid arteries and the brachiocephalic trunk. The ascending aorta is dilated to 4.6 cm. Dissection is followed to the hiatus. No hemorrhage. Lungs and pleural spaces: Centrilobular emphysematous changes present. There is mild dependent atelectasis in both lung bases. Trace bilateral pleural effusions. No pneumothorax. No mass. Heart: Enlarged. Small hemopericardium noted. No evidence of RV dysfunction. Bones/joints: No acute or atypical chronic changes. Soft tissues: No abnormality noted. Lymph nodes: No abnormality noted. No enlarged lymph nodes. Tubes, lines and devices: Endotracheal tube in good position. IMPRESSION: 1. Type A aortic dissection with 4.6 cm aneurysm of the ascending segment and hemopericardium. No active hemorrhage noted. 2. Emphysema. ACT 112: Negative or not required by law. Electronically signed by Carolyn Crespo 11-16-2024 4:49 PM
--- NOTE | 2024-11-16 16:54 | Cardiac Catheterization ---
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 Cardiac Status Clinical evaluation leading to the procedure CAD Presenation: STEMI Diagnostic Physicians Name: Mehran Hampton MD Closure Device Recommendations: Management Recommendatons (CTA, Tertiary center transfer) Cardiac Cath Procedure Full Procedure Date November 16, 2024 Pre-Procedure Diagnosis Pre-Procedure Diagnosis: STEMI AUC Score AUC Score: 9 Post-Procedure Diagnosis Post-Procedure Diagnosis: Mild CAD and Cardiothoracic Finding (Type A thoracic dissection) Procedure(s) Performed Procedure(s) Performed: Coronary Angiography, Left Heart Cath, Ultrasound Guided Vascular Access, Pericardiocentesis, Aortography, Femoral Artery Angiography and Radial Artery Angiography Supervisor Tumbling And Rolling Mehran Hampton MD Licensed Psychiatric Technician(s) Phil Estimated Blood Loss Estimated Blood Loss: 10 Medication(s) Medication(s): Epinephrine, Fentanyl, Lidocaine 1%, Norepinephrine and Versed Medication(s): Amiodarone Summary of Findings Indication: Cardiac arrest with reported ST elevation on telemetry post ROSC. New pericardial effusion post beside tamponade. Access: 6Fr LT HELP DESK REPRESENTATIVE under ultrasound guidance. 6Fr RT radial artery. 6Fr RT ulnar artery under ultrasound guidance Catheters: Pigtail, EBU3.5 guide, [place] Findings: LM - Normal caliber, no significant disease LAD - Medium caliber, proximal luminal irregularities. Mid to distal vessel without significant disease as wraps around apex. D1 with luminal irregularities. Circumflex - Medium caliber, proximal luminal irregularities. 20-30% proximal disease in medium high OM1. Medium OM2 without significant disease. 4 RCA - Dominant, medium caliber, 30% mid segment disease. Distal vessel, RPDA without significant disese. LVEDP - 17 Arterial Closure: TR Band. LT HELP DESK REPRESENTATIVE sheath left in place. Initial access from LT HELP DESK REPRESENTATIVE artery under ultrasound guidance. Noted to have sluggish distal flow downstream from sheath. Aortogram showed AAA with no minimal flow into RT external iliac artery. Catheter navigated to aortic root. Unable to cannulate coronaries and injection through pigtail suggested placement into dissection flap. RT radial artery cannulated under ultrasound guidance. Severe diffuse radial artery disease and unable to navigate wire into brachial artery. RT ulnar artery cannulated and catheter placed over wire to aortic root. LHC and coronary angiography performed. Echocardiogram performed while on optical lab technician table showed dilated aortic root with possible dissection flap and at least moderate AI. Pericardial effusion reaccumulating over course of procedure and decision to proceed with pericardiocentesis prior to Chest CTA to confirm dissection. Under echo guidance micropuncture needle directed into pericardial space. Position confirmed with agitated saline contrast injection. 6Fr sheath placed into pericardial space and 6Fr pigtail placed through sheath. Removed 150ml of bloody fluid. Repeat ultrasound confirmed only trace residual fluid. Summary: 1. Apparent type A thoracic dissection with resulting pericardial effusion 2. Mild coronary artery disease - 20-30% proximal OM1 - 30% mid RCA - Luminal irregularities in proximal LAD 2. Borderline intracardiac filling pressure (LVEDP 17). 4. Successful echo guided pericardiocentesis with removal of 150ml bloody fluid. Recommendations: Chest CTA and likely transfer to [facility] for Cardiothoracic surgery evaluation. Hemodynamics Rest Ao:: 96/76/59 Final Ao: 88/52/64 LV: 129/17 Recommendations Recommendations: Management Recommendatons (CTA, Tertiary center transfer) Radiation Exposure (mGy) 628 Contrast (mls) 120 Drains Drains: pericardial drain Anesthesia Moderate 8963-0063 Procedural Complication(s) None Disposition ICU I attest to the content of the Intraoperative Record and any orders documented therein. Any exceptions are noted below. [email or web address] Card Cath Procedure Codes Cardiac Catheterization Procedure 1: Cardiovascular Cath Procedures: 72776 Coronaries and LHC (+/-LV) Therapeutic Services & Ancillary Procedure 1: Cardiovascular Tx and Anc Procedures: 71818 Pericardiocentesis w / Imaging Procedure 2: Cardiovascular Tx and Anc Procedures: 69349 Ultrasonic Guidance Vascular Access Procedure 3: Cardiovascular Tx and Anc Procedures: 28898 Ultrasonic Guidance Vascular Access Moderate Sedation Procedure 1: Sedation/Anesthesia: 15074 Mod Sedation by the same physician;Init15 Min Child Age 5 & Up Procedure 2: Sedation/Anesthesia: 49386 Mod Sedation by the same physician; Ea [id number] Minutes Vascular Charges Angiography/Venography Procedure 1: Angiography/Venography charges: 61053 Aortography, abd + b/l iliofem LE, catheter, radiological S&I PG Care Time/CCT Total # of Minutes Spent Total Time Spent with Patient: Total time spent is greater than 50% in coordination of care (as documented) at patient's floor/unit and/or counseling patient:
--- NOTE | 2024-11-16 16:57 | CT Scan Report ---
EXAM: CT Angiography Abdomen With Intravenous Contrast INDICATION: TECHNIQUE: Axial computed tomographic angiography images of the abdomen with intravenous contrast. Sagittal and coronal reformatted images were created and reviewed. This CT exam was performed using one or more of the following dose reduction techniques: automated exposure control, adjustment of the mA and/or kV according to patient size, and/or use of iterative reconstruction technique. MIP reconstructed images were created and reviewed. CONTRAST: 119ml of Optiray 320 was administered intravenously. COMPARISON: No relevant prior studies available. FINDINGS: Aorta: Aortic dissection extends into both common iliac arteries. There is 3.7 cm aneurysmal dilatation of the distal aorta. Celiac trunk and mesenteric arteries: No acute change noted. No occlusion or significant stenosis. Renal arteries: Right renal artery is small and extends from the false lumen. Major branches are patent. No occlusion or significant stenosis. Iliac arteries: Dissection in the left common iliac artery causes diminished flow proximally. The left external iliac artery demonstrates diminished distal flow. No aneurysm or hemorrhage. Lung bases: No abnormality noted. No mass. No consolidation. Heart: Hemopericardium noted. Liver: No abnormality noted. No mass. Gallbladder and bile ducts: The gallbladder is thickened with possible surrounding fluid. No calcified stones. No ductal dilation. Pancreas: No abnormality noted. No ductal dilation. No mass. Spleen: No abnormality noted. No splenomegaly. Adrenals: No abnormality noted. No mass. Kidneys and ureters: There is mild heterogeneous enhancement of the kidneys. No hydronephrosis, stone or gas. Stomach and bowel: No abnormality noted. No obstruction. No mucosal thickening. Appendix: Well seen and appears normal. Intraperitoneal space: Trace free fluid around the liver. No abscess. No free air. Bones/joints: No acute or atypical chronic changes. Soft tissues: Small fat-containing right inguinal hernia. Lymph nodes: No abnormality noted. No enlarged lymph nodes. Tubes, lines and devices: Right femoral catheter in place with mild subcutaneous contusion along the catheter. The tip of the catheter appears outside of vessel interposed between L5 and the right psoas muscle. No associated hematoma in the peritoneal cavity. IMPRESSION: 1. Type a aortic dissection extends into the bilateral common iliac arteries. Distal abdominal aortic aneurysm measures 3.7 cm. No rupture. 2. There is stenosis and slow flow in the proximal half of the left common iliac artery without occlusion. 3. Right femoral vein catheter present. The tip may be outside the lumen although there is no associated hematoma. There is mild subcutaneous contusion in the right groin. 4. Thickened gallbladder with question pericholecystic fluid. Acute cholecystitis not excluded. 5. Mild heterogeneous renal enhancement could reflect developing infarcts. 6. Hemopericardium. ACT 112: Negative or not required by law. Electronically signed by Carolyn Crespo 11-16-2024 4:57 PM
[2024-11-16] MEDS ORDERED: fentaNYL BOLUS from BAG IV PRN (17:00)
[2024-11-16] MEDS ORDERED: fentaNYL citrate 2,500 MCG/250 ML BAG IV SCH (17:00)
[2024-11-16] MEDS ORDERED: POTASSIUM CHLORIDE / WTR 20 MEQ/100 ML PLCT IV SCH (17:00)
[2024-11-16 17:13] LABS: iSTAT Art Bld Gas pCO2 Correct 26 mmHg (35-46); iSTAT Art Bld Gas pH Corrected 7.406 (7.35-7.45); iSTAT Arterial Blood Gas HCO3 17 meg/L (19-24); iSTAT Arterial Blood Gas pCO2 31 mmHg (35-46); iSTAT Arterial Blood Gas pH 7.34 (7.35-7.45); iSTAT Arterial Blood Gas pO2 407 mmHg (80-95); iSTAT Arterial Blood Gas pO2 C 383; iSTAT Carbon Dioxide 18 mmol/L (24-31); iSTAT FiO2 100 %; iSTAT Hematocrit 27 % (42-52); iSTAT Hemoglobin 9.2 g/dl (14.0-18.0); iSTAT Potassium 3.2 mmol/L (3.3-5.0); iSTAT Sample Type Arterial; iSTAT Site Art Line; iSTAT Sodium 136 mmol/L (135-144)
[2024-11-16 17:15] LABS: Fibrinogen 56 mg/dl (184-400)
[2024-11-16 17:16] LABS: D Dimer 22000 ug/L FEU (0-500)
[2024-11-16 17:19] VITALS: PULSE 66; RESP 23
[2024-11-16 17:20] LABS: Magnesium 3.7 mg/dl (1.7-2.4); Phosphorus 6.4 mg/dl (2.5-4.9)
[2024-11-16] MEDS ORDERED: AMIODARONE 360MG / 200ML D5W IV ONE (17:25)
[2024-11-16 17:47] VITALS: TEMP 91.2; O2SAT 98
[2024-11-16] MEDS ORDERED: AMIODARONE HCL INJ 50 MG/ML 3 ML VIAL IV ONE ×2 (19:58)
[2024-11-16] MEDS ORDERED: MAG SULFATE 50% 1GM/2ML VIAL IV ONE (19:58)
[2024-11-16] MEDS ORDERED: CALCIUM CHLORIDE 10% 10 ML SYR IV ONE (19:58)
[2024-11-16] MEDS ORDERED: ATROPINE SULFATE 0.1 MG/ML 10ML SYR IV ONE (19:58)
[2024-11-16] MEDS ORDERED: SODIUM BICARB 8.4% INJ 50 MEQ/50 ML SYR IV ONE ×2 (19:58)
[2024-11-16 19:59] VITALS: BP 131/73
--- NOTE | 2024-11-16 21:37 | XCELERA ---
[id number] \\[id number].pdf
--- NOTE | 2024-11-17 12:37 | Electrocardiogram Report ---
Test Reason : Blood Pressure : */* mmHG Vent. Rate : 81 BPM Atrial Rate : 81 BPM P-R Int : 128 ms QRS Dur : 88 ms QT Int : 358 ms P-R-T Axes : 65 70 64 degrees QTcB Int : 415 ms Normal sinus rhythm Possible Left atrial enlargement Nonspecific ST abnormality Abnormal ECG No previous ECGs available Confirmed by Josué Rose ([id number]) on 11/17/2024 12:36:28 PM Referred By: REFERRED SELF Confirmed By: Josué Rose
== END 2024-11-16 19:59 | disposition short-term general hospital (02) | DRG 286 ==
LOC: EDBD → ED 13:06 → CC 14:20 → 1E 14:44

== ENCOUNTER 2025-05-16 17:27 | Inpatient (IN) ==
[2025-05-16] MEDS: SODIUM CHLORIDE 0.9% 500 ML IV STA (17:50)
[2025-05-16] MEDS: ONDANSETRON INJ 2 MG/ML 2 ML VIAL IV STA (17:50)
[2025-05-16 17:56] LABS: Hematocrit (blood only) 45.0 % (42.0-52.0); Hemoglobin 14.9 g/dl (14.0-18.0); Immature Granulocytes # (auto) 0.05 K/uL (0.01-0.20); Immature Granulocytes % (auto) 0.5 %; Mean Corpuscular Hemoglobin 28.8 pg (25.0-34.0); Mean Corpuscular Volume 86.9 fL (80.0-100.0); Platelet Count 271 K/uL (130-400); RDW Standard Deviation 47.3 fL (36.4-46.3); Red Blood Count 5.18 M/uL (4.70-6.10); White Blood Count 10.91 K/ul (4.8-10.8)
--- NOTE | 2025-05-16 18:05 | Emergency Department Note ---
Impression & Plan SBO (small bowel obstruction) Admission ED Provider Note HPI: History obtained from patient. The patient is a 69-year-old male who presents the emergency department with a chief complaint of vomiting. Patient has history significant for aortic dissection status postrepair ([facility] in November 2024) and status post CVA during the same admission. Patient also had complication of ischemic bowel postoperatively and did require abdominal surgery as well during that admission. Patient's and his son at the bedside are serving further history, they state the patient had some vomiting over about the past 24 hours. He has not been complaining of any pain. He has not had any diarrhea. On arrival here to the ED the patient is hemodynamically stable, he otherwise appears to be in no acute distress. ROS: - Per HPI Differential Diagnosis: Small bowel obstruction, viral gastroenteritis, abdominal aortic dissection, ischemic colitis, acute cholecystitis, acute appendicitis, diverticulitis flare, perforated viscus, amongst other potential pathologies. *Outpatient medications and allergy history reviewed. PE: General: Alert, frail-appearing, no acute distress HEENT: Normocephalic, trachea midline Eyes: Extraocular eye movement is intact, no scleral erythema Pulmonary: Clear to auscultation bilaterally, no wheezing Cardio: Regular rate and rhythm GI: Abdomen is soft to palpation, mild distention : No suprapubic tenderness MSK: No evidence of trauma or malformation of the extremities, no edema Skin: No evidence of rash Neuro: Alert, no focal deficits Psychiatric: Cooperative INDEPENDENT INTERPRETATIONS: size changer: (As interpreted by myself): - An order was placed for continuous cardiac monitoring - Patient was noted to be in sinus rhythm with a rate of 80 EKG: (As interpreted by myself): Rate: 87 Rhythm: Normal sinus rhythm Intervals: Within normal limits ST changes: No ST elevation Time: 2012 Interventions provided in ED: - IV Zofran, IV fluid bolus, IV Reglan, IV Benadryl, IV labetalol Medical Decision Making: IV was established and lab work obtained, patient was placed on traffic analysis technician. Lab work shows a mild leukocytosis at 10.9, hemoglobin is normal, platelet count is normal, CMP does not show any evidence of any critical findings. Creatinine was mildly elevated at 1.6 and the patient was given IV fluids. Lactic acid is normal. Troponin is negative x 1. EKG does not show any acute ischemic changes per my interpretation. CT imaging of the abdomen pelvis with IV contrast was obtained, the patient's aortic dissection status postrepair appears stable in comparison to previous imaging per the interpreting radiologist. Small bowel obstruction is noted. I do suspect this is the source of the patient's symptoms. On my reassessment the patient no longer has any vomiting following the above medications. General surgery was consulted, patient was assessed at the bedside by the general surgery midlevel provider. Medicine was consulted for admission and the patient's case was discussed with the on-call hospitalist, Dr. Thornton. Patient was placed for admission in stable condition. Consultants/Discussions held with other healthcare providers: - Hospitalist, Dr. Thornton - General Surgery, Dr. Morales Disposition discussion held by myself with: - Patient and patient's at the bedside Diagnosis: 1. Small bowel obstruction, acute 2. Elevated creatinine, acute, mild Disposition: Admission Jose Gutierres DO Emergency Medicine Past Med/Surg History Problem List (Updated 05/16/25 @ 22:47 by Jose Gutierres DO) SBO (small bowel obstruction) (Acute) Small bowel obstruction Neoplasm of base of skull (Chronic) H/O head and neck radiation Status post aortic dissection repair H/O: stroke with residual effects Thoracic aortic dissection Acute pericardial effusion (Acute) Respiratory arrest (Acute) Cardiac arrest (Acute) COPD (chronic obstructive pulmonary disease) HTN (hypertension) Oral thrush AOM (acute otitis media) Malignant neoplasm of right upper lobe of lung Multiple lung nodules on CT (Chronic) 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 Joes Pineda History of surgical procedure on mouth (08/31/20) excision of sublabial mass with repair History of surgical procedure on mouth (08/20/20) division of Keagan flap and debulking History of surgical procedure on mouth (07/20/20) re-excision of lower lip History of surgical procedure on mouth (07/13/20) re-excision of lesion with Keagan flap reconstruction from rt upper lip Hx of biopsy (07/09/20) wedge resection of 1/2 of lower lip with SLN bx Hx of repair of rotator cuff (~2004) History of repair of rotator cuff (~2003) Family History Denies family history of Ovarian cancer Prostate cancer Myocardial infarction Breast cancer Colorectal cancer Social History Smoking Status: Never smoker Tobacco Type: Cigarettes Age Started Using Tobacco: 16; Age Quit Using Tobacco: 65; packs per day: 1; Second Hand Exposure: No; Do You Dip or Chew Tobacco: No; Preferred Language: Mozambican Communication Ability: Effective Visual Impairment: No Limitations Hearing Ability: Normal 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: No Beliefs That Will Affect Care: None marital status: Current Living Situation: Spouse current occupational status: employed 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 How many Children do You have: 1 Feels Safe at Home: Yes Childhood Exposure to Second-Hand Smoke: Yes Diet: regular Diet Comment: "I eat all that I can" caffeine: Yes (coffee 2 cups per day) during the past year weight has: remained stable Dental Care, Regularly: No Physical Activity Frequency: Daily Physical Activity Frequency Comment: "I'm a pretty active person" Seatbelt Use: never Sunscreen Use: No Assistive Devices: Denture - Upper, Denture - Lower and Glasses Allergies Allergies Allergy/AdvReac Type Severity Reaction Status Date / Time dexamethasone Allergy Severe DIFFICULTY Verified 05/16/25 19:29 BREATHING/COUGH/HICCUPS adhesive tape Allergy Mild SKIN Verified 05/16/25 19:29 IRRITATION Home Meds Home Medications Medication Instructions Recorded Confirmed multivitamin 1 tab PO DAILY 01/31/21 05/16/25 sour valadez extract 1,000 mg 2,000 mg PO BID 10/06/22 05/16/25 capsule (Tart Valadez Extract) Better Lungs 2 cap PO DAILY 09/10/24 05/16/25 atorvastatin 20 mg tablet 10 mg PO HS 09/10/24 05/16/25 bitter melon extract 750 mg tablet 750 mg PO DAILY 04/26/25 05/16/25 finasteride 5 mg tablet 5 mg PO DAILY 04/26/25 05/16/25 folic acid 1 mg tablet 1 mg PO DAILY 04/26/25 05/16/25 gabapentin 300 mg capsule 300 mg PO HS 04/26/25 05/16/25 kidney health bladder support 1 tab PO DAILY 04/26/25 05/16/25 acetaminophen 300 mg-codeine 30 mg 2 tab PO Q6H PRN PAIN/MODERATE, 05/16/25 05/16/25 tablet SEVERE acetaminophen 500 mg tablet 500 mg PO Q6H PRN PAIN/FEVER 05/16/25 05/16/25 (Tylenol Extra Strength) ascorbic acid (vitamin C) 500 mg 500 mg PO DAILY 05/16/25 05/16/25 tablet (Vitamin C) cyanocobalamin (vitamin B-12) 100 100 mcg PO DAILY 05/16/25 05/16/25 mcg tablet (Vitamin B-12) duloxetine 30 mg capsule,delayed 30 mg PO BID 05/16/25 05/16/25 release ferrous sulfate 325 mg (65 mg 325 mg PO WK 05/16/25 05/16/25 iron) tablet gabapentin 100 mg capsule 100 mg PO QAM 05/16/25 05/16/25 ibuprofen 200 mg tablet (Motrin IB) 200 mg PO Q6H PRN PAIN/FEVER 05/16/25 05/16/25 magnesium oxide 800 mg PO DAILY 05/16/25 05/16/25 omega-3 fatty acids 1,000 mg 2,000 mg PO BID 05/16/25 05/16/25 capsule ondansetron 4 mg disintegrating 4 mg PO Q8H PRN NAUSEA/VOMITING 05/16/25 05/16/25 tablet potassium gluconate 600 mg (99 mg) 600 mg PO DAILY 05/16/25 05/16/25 tablet turmeric root extract 500 mg 500 mg PO DAILY 05/16/25 05/16/25 capsule vitamin B complex 1 tab PO DAILY 05/16/25 05/16/25 vitamin D3 125 mcg (5,000 1 cap PO QAM 05/16/25 05/16/25 unit)-vitamin K2 100 mcg capsule Results & Data (ED) Vital Signs Vital Signs - 24 hr 05/16/25 17:29 05/16/25 17:59 05/16/25 19:00 Temperature 35.5 C L Temperature Source Temporal Artery Scan Pulse Rate 88 78 Pulse Rate [Apical] Respiratory Rate 16 Respiratory Effort / Characteristics Non-Labored Spontaneous Non-Labored Respiratory Depth Normal Normal Respiratory Pattern Regular Blood Pressure 108/71 Blood Pressure [Right Arm] Blood Pressure Mean 83 Blood Pressure Mean [Right Arm] Blood Pressure Position Sitting Pulse Oximetry 96 Oxygen Delivery Method Room Air Sepsis Recent Fever Within 48 Hours No Sepsis New/Unexplained Change in Mental Status No Sepsis Action Taken by Nursing No Action Required 05/16/25 21:00 Temperature Temperature Source Pulse Rate Pulse Rate [Apical] 83 Respiratory Rate 18 Respiratory Effort / Characteristics Respiratory Depth Respiratory Pattern Blood Pressure Blood Pressure [Right Arm] 166/93 H Blood Pressure Mean Blood Pressure Mean [Right Arm] 117 Blood Pressure Position Pulse Oximetry 94 Oxygen Delivery Method Room Air Sepsis Recent Fever Within 48 Hours Sepsis New/Unexplained Change in Mental Status Sepsis Action Taken by Nursing Laboratory Data 05/16/25 17:44 05/16/25 17:44 Lab Results 05/16/25 05/16/25 Range/Units 17:44 20:34 WBC 10.91 H (4.8-10.8) K/ul RBC 5.18 (4.70-6.10) M/uL Hgb 14.9 (14.0-18.0) g/dl Hct 45.0 (42.0-52.0) % MCV 86.9 (80.0-100.0) fL MCH 28.8 (25.0-34.0) pg MCHC 33.1 (32.0-36.0) g/dL RDW Std Deviation 47.3 H (36.4-46.3) fL RDW Coeff of Navarro 15.0 H (11.5-14.5) % Plt Count 271 (130-400) K/uL MPV 9.9 (9.4-12.4) fL Immature Gran % (Auto) 0.5 % Neut % (Auto) 80.0 % Lymph % (Auto) 10.4 % [place] % (Auto) 8.6 % Eos % (Auto) 0.2 % Baso % (Auto) 0.3 % Neut # (Auto) 8.74 H (1.40-6.50) K/uL Lymph # (Auto) 1.13 L (1.20-3.40) K/uL [place] # (Auto) 0.94 H (0.11-0.59) K/uL Eos # (Auto) 0.02 (0.00-0.50) K/uL Baso # (Auto) 0.03 (0.00-0.20) K/uL Immature Gran # (Auto) 0.05 (0.01-0.20) K/uL Sodium 142 (136-145) mmol/L Potassium 4.0 (3.5-5.1) mmol/L Chloride 102 (98-107) mmol/L Carbon Dioxide 29 (21-32) mmol/L Anion Gap 11 (3-11) BUN 16 (6-23) mg/dl Creatinine 1.61 H (0.6-1.4) mg/dl Est Cr Clr Drug Dosing Not Reportable eGFR 46.58 BUN/Creatinine Ratio 9.9 L (10-20) Glucose 165 H (70-99(Fasting)) mg/dl Lactate 2.0 (0.4-2.0) mmol/L Calcium 10.9 H (8.6-10.3) mg/dl Total Bilirubin 0.7 (0.2-1.0) mg/dl AST 31 (13-39) U/L ALT 21 (7-52) U/L Alkaline Phosphatase 120 H (34-104) U/L Troponin I High Sens 7.6 (0-20) pg/ml Total Protein 8.3 (6.0-8.3) gm/dl Albumin 4.9 (3.4-5.0) gm/dl Globulin 3.4 (2.5-4.0) gm/dl Albumin/Globulin Ratio 1.4 (0.9-2) Administered Medications Sodium Chloride (Nss) 1,000 mls @ 100 mls/hr IV .Q10H ELSA Stop: 05/19/25 21:14 Last Admin: 05/16/25 21:27 Dose: 100 mls/hr Documented By: NRB Discontinued Medications Diphenhydramine HCl (Diphenhydramine 50 Mg/Ml Vial) 25 mg IV NOW STA Stop: 05/16/25 19:43 Last Admin: 05/16/25 19:55 Dose: 25 mg Documented By: ANNMARIE Sodium Chloride (Nss) 500 mls @ 999 mls/hr IV .Q31M STA Stop: 05/16/25 18:18 Last Infusion: 05/16/25 18:37 Dose: Infused Documented By: Admin: 05/16/25 17:50 Dose: 999 mls/hr Documented By: DIEGO Ioversol (Optiray 320 100ml) 90 ml IV ONCE ONE Stop: 05/16/25 19:20 Last Admin: 05/16/25 19:19 Dose: 90 ml Documented By: AMINTA Labetalol HCl (Labetalol Hcl Iv 5 Mg/Ml 20ml) 10 mg IV NOW STA Stop: 05/16/25 20:07 Last Admin: 05/16/25 20:11 Dose: 10 mg Documented By: ANNMARIE Lidocaine HCl (Lidocaine 2% Jelly 5 Ml Tube) Confirm Administered Dose 5 ml EXT .STK-MED ONE Stop: 05/16/25 22:38 Last Admin: 05/16/25 22:40 Dose: Not Given Documented By: DIEGO Lidocaine HCl (Lidocaine 2% Jelly 5 Ml Tube) 5 ml EXT NOW STA Stop: 05/16/25 22:39 Last Admin: 05/16/25 22:40 Dose: 5 ml Documented By: DIEGO Metoclopramide HCl (Metoclopramide Hcl Inj 5 Mg/Ml 2 Ml Vial) 10 mg IV NOW STA Stop: 05/16/25 19:43 Last Admin: 05/16/25 19:55 Dose: 10 mg Documented By: ANNMARIE Miscellaneous (Patient's Height &/Or Weight Needed) 1 each N/A NOW STA Stop: 05/16/25 22:14 Last Admin: 05/16/25 22:40 Dose: 1 each Documented By: DIEGO Morphine Sulfate (Morphine Sulfate 2 Mg/Ml Carp) 1 mg IV NOW STA Stop: 05/16/25 22:08 Last Admin: 05/16/25 22:29 Dose: 1 mg Documented By: DIEGO Ondansetron HCl (Ondansetron Inj 2 Mg/Ml 2 Ml Vial) 4 mg IV NOW STA Stop: 05/16/25 17:49 Last Admin: 05/16/25 17:50 Dose: 4 mg Documented By: DIEGO Imaging Data Radiologist's Impression: Abdomen/Pelvis CT 05/16/25 18:02 CT ABDOMEN and PELVIS with INTRAVENOUS CONTRAST HISTORY: Abdominal pain TECHNIQUE: CT abdomen and pelvis with contrast. IV CONTRAST: 100 mL of OMNIPAQUE 300 ENTERIC CONTRAST: Not Given COMPARISON: FINDINGS: AORTA: Redemonstration type B aortic dissection continues through the abdominal aorta and through the right common iliac artery to the iliac bifurcation. Again the dissection flaps extend into the SMA. There is also redemonstrated infrarenal abdominal aortic aneurysm measuring up to 4.0 cm. These finds are not significantly changed since the CTA evaluation of November 21, 2024. LOWER CHEST: Emphysema LIVER: No focal lesion identified. Hepatic steatosis and hepatomegaly. GALLBLADDER/BILIARY: Unremarkable gallbladder. No abnormal biliary dilatation. SPLEEN: Unremarkable. PANCREAS: Unremarkable. ADRENALS: Unremarkable. KIDNEYS: Unremarkable. No stones or hydronephrosis identified. PERITONEUM/RETROPERITONEUM. No lymphadenopathy by size criteria. No aortic aneurysm. GASTROINTESTINAL: There are multiple loops of dilated small bowel in the left hemiabdomen with a transition point noted in the left hemiabdomen just to the left of the abdominal aorta (series 2, image 36). Distal esophageal wall thickening. Surgical material noted by the cecum REPRODUCTIVE: Enlarged prostate gland with coarse calcifications. The prostate gland impinges upon the urinary bladder outlet. URINARY BLADDER: Mildly distended with wall thickening ABDOMINAL WALL: Small fat-containing right inguinal hernia Midline incisional scar. BONES: No acute findings. IMPRESSION: Small obstruction with a transition point in the left hemiabdomen as above. Redemonstration type B aortic dissection continues through the abdominal aorta and through the right common iliac artery to the iliac bifurcation. Again the dissection flaps extends into the SMA. There is also redemonstrated infrarenal abdominal aortic aneurysm measuring up to 4.0 cm. These finds are not significantly changed since the CTA evaluation of November 21, 2024. Prostamegaly with the urinary bladder outlet obstruction. Inflammatory changes of the urinary bladder could be due to cystitis. Distal esophageal wall thickening. This may be due to esophagitis Notification of clinician of alert: [facility] ED was notified about above findings by phone on May 16, 2025 at 8:03 PM by Xavier Young MD. Readback confirmation was obtained. Electronically signed by Xavier Young 05-16-2025 8:06 PM Discharge Plan Visit Data Chief Complaint: Vomiting Stated Complaint: VOMITING ED Provider: Jose Gutierres Discharge Problem: SBO (small bowel obstruction) Patient Disposition: Admitted As Inpatient Condition: Fair
[2025-05-16 18:12] LABS: Alanine Aminotransferase 21 U/L (7-52); Alkaline Phosphatase 120 U/L (34-104); Anion Gap 11 (3-11); Blood Urea Nitrogen 16 mg/dl (6-23); Calcium 10.9 mg/dl (8.6-10.3); Carbon Dioxide 29 mmol/L (21-32); Chloride 102 mmol/L (98-107); Glucose 165 mg/dl (70-99(Fasting)); Potassium 4.0 mmol/L (3.5-5.1); Sodium 142 mmol/L (136-145)
[2025-05-16 18:19] LABS: Albumin Globulin Ratio 1.4 (0.9-2); Bilirubin,Total 0.7 mg/dl (0.2-1.0); Globulin 3.4 gm/dl (2.5-4.0); Total Protein 8.3 gm/dl (6.0-8.3)
[2025-05-16] MEDS: OPTIRAY 320 100ml IV ONE (19:19)
[2025-05-16] MEDS: METOCLOPRAMIDE HCL INJ 5 MG/ML 2 ML VIAL IV STA (19:55)
[2025-05-16] MEDS: diphenhydrAMINE 50 MG/ML VIAL IV STA (19:55)
--- NOTE | 2025-05-16 20:07 | CT Scan Report ---
CT ABDOMEN and PELVIS with INTRAVENOUS CONTRAST HISTORY: Abdominal pain TECHNIQUE: CT abdomen and pelvis with contrast. IV CONTRAST: 100 mL of OMNIPAQUE 300 ENTERIC CONTRAST: Not Given COMPARISON: FINDINGS: AORTA: Redemonstration type B aortic dissection continues through the abdominal aorta and through the right common iliac artery to the iliac bifurcation. Again the dissection flaps extend into the SMA. There is also redemonstrated infrarenal abdominal aortic aneurysm measuring up to 4.0 cm. These finds are not significantly changed since the CTA evaluation of November 21, 2024. LOWER CHEST: Emphysema LIVER: No focal lesion identified. Hepatic steatosis and hepatomegaly. GALLBLADDER/BILIARY: Unremarkable gallbladder. No abnormal biliary dilatation. SPLEEN: Unremarkable. PANCREAS: Unremarkable. ADRENALS: Unremarkable. KIDNEYS: Unremarkable. No stones or hydronephrosis identified. PERITONEUM/RETROPERITONEUM. No lymphadenopathy by size criteria. No aortic aneurysm. GASTROINTESTINAL: There are multiple loops of dilated small bowel in the left hemiabdomen with a transition point noted in the left hemiabdomen just to the left of the abdominal aorta (series 2, image 36). Distal esophageal wall thickening. Surgical material noted by the cecum REPRODUCTIVE: Enlarged prostate gland with coarse calcifications. The prostate gland impinges upon the urinary bladder outlet. URINARY BLADDER: Mildly distended with wall thickening ABDOMINAL WALL: Small fat-containing right inguinal hernia Midline incisional scar. BONES: No acute findings. IMPRESSION: Small obstruction with a transition point in the left hemiabdomen as above. Redemonstration type B aortic dissection continues through the abdominal aorta and through the right common iliac artery to the iliac bifurcation. Again the dissection flaps extends into the SMA. There is also redemonstrated infrarenal abdominal aortic aneurysm measuring up to 4.0 cm. These finds are not significantly changed since the CTA evaluation of November 21, 2024. Prostamegaly with the urinary bladder outlet obstruction. Inflammatory changes of the urinary bladder could be due to cystitis. Distal esophageal wall thickening. This may be due to esophagitis Notification of clinician of alert: [facility] was notified about above findings by phone on May 16, 2025 at 8:03 PM by Xvaier Young MD. Readback confirmation was obtained. Electronically signed by Xavier Young 05-16-2025 8:06 PM
[2025-05-16] MEDS: LABETALOL HCL IV 5 MG/ML 20ML IV STA (20:11)
--- NOTE | 2025-05-16 21:06 | Surgery Consultation ---
Date of Consultation May 16, 2025 Assessment & Plan (1) Small bowel obstruction: I discussed with the treating emergency room physician the patient is being admitted on the hospitalist service. Surgical recommendations are as follows: Would recommend implementing n.p.o. status IV fluid for hydration should be employed The patient has had ongoing nausea and vomiting since arrival to the emergency department. His stomach also appears distended on CT scan. I have therefore recommended placing an NG tube however the patient does not wish to have this modality utilized at this time. I did discuss with the patient that if he has ongoing nausea and vomiting he can potentially aspirate if he has emesis and he did expresses understanding, as did his family. Patient does note that he if he does have another episode of nausea and vomiting he will reconsider the use of an NG tube. The treat emergency room physician has ordered a lactic acid level which has just been resulted of 2.0 which is not elevated. I had a lengthy discussion with the patient, and his family was present at the bedside. I told him that it is possible that he has a small bowel obstruction related to adhesions as a result of his abdominal surgery at the time of his aortic dissection. At the present time the patient is nontoxic-appearinghe has minimal abdominal pain and he is normotensive without tachycardia or fever. As noted above he does not have an elevated lactic acid level. Although the patient does have an element of acute kidney injury I suspect that this is due to prerenal causes due to ongoing nausea and vomiting. I do feel that conservative measures are warranted at this time If the patient's small bowel obstruction fails to show any positive progress in the next 24 to 48 hours consideration be given to repeat abdominal imaging utilizing oral contrast Additional recommendations will be forthcoming based on his clinical course as unfolds Addendum (11:45 PM) I was notified by nursing staff at approximately 10:00 PM the patient continued to have nausea and vomiting. He was now agreeable to having NG tube placed which nursing staff attempted. They were unable to place this and shortly thereafter patient became hypotensive. His blood pressure did respond to intravenous fluids. Patient was then agreeable having this clinician tried placing an NG tube. I did attempt to place an NG tube but was unsuccessful. With attempts at placing NG tube the patient would gag forcefully and his pulse ox dropped into the high 80s with this. As the patient had multiple attempts of failed NG tube placement he then requested that further attempts be stopped at this time. Will allow the patient time to recover from his NG tube placement attempts. Will try using antiemetics to curtail his nausea and vomiting. In addition the information noted above I did contact cardiothoracic surgery at [facility] and spoke with Dr. King. We reviewed the patient's CT scan findings, specifically the aortic dissection propagating through the patient's abdominal aorta. He said he with the type a aortic dissection repair this is an expected postoperative finding. I discussed that at this point I have a low clinical suspicion of ischemic bowel as the patient does not have le ukocytosis or elevated lactic acid level. I also did not appreciate any pneumatosis intestinalis on patient's CT scan. Dr. King suggested treating patient's small bowel obstruction in a typical fashion which we are doing and there does not appear to be any apparent needs for cardiothoracic or vascular surgery at this time. Addendum (2:00 AM) Patient revisited at the bedside. I also discussed with the patient's nurse and he has not had any emesis since arrival to the floor. He is currently resting comfortably in bed and does not describe any worsening abdominal pain. Will continue with plan as outlined above Supervising Physician Co-Signing Physician Notes Patient discussed with REBEKAH overnight, labs and imaging reviewed, agree with above. History of aortic dissection repair with ischemic bowel requiring resection in November at [facility], now with small bowel obstruction. Plan for nonoperative management. For current plan, please refer to progress note from 17 May 2025. History of Present Illness Reason for Consultation: Small bowel obstruction. History of Present Illness This is a 69-year-old male who presented to the emergency department secondary to nausea and vomiting. This man has a complicated past medical past surgical historyin November of this year patient presented to the emergency department at [facility] and was diagnosed with a type a aortic dissection. Patient was transferred emergently to [facility] where he had a repair of this dissection performed via median sternotomy on 11/16/2024. It is noted that the patient also had delayed primary closure of his chest which was performed on 11/18/2024. Patient's hospital course at that time was complicated by ischemic bowel requiring exploratory laparotomy and wedge resection of a portion of the patient's cecum. This was performed on 11/17/2024. The patient required to reopen laparotomy on 11/20/2024 where patient was not noted to have any further ischemic bowel and his abdomen was closed at this time. 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 They also note that he does have some speech difficulties. He is however able to swallow and eat regular food. Following patient's hospital stay [facility] he did go to [facility] for approximately 2 weeks for rehab and he has been living at home since. The patient was in his usual health yesterday however at approximately 11:00 PM he informed his family he just did not feel right and he began to have some nausea and vomiting with only some minor abdominal pain. There were no fevers, shakes, or chills reported. Patient's most recent bowel movements were today where he was noted to have 3 bowel movements. Patient continued to have ongoing nausea and vomiting and he therefore presented to the emergency department. Since arrival to the hospital this patient has had labs and imaging which I independently reviewed. Patient did have a CT scan of the abdomen pelvis which showed multiple loops of dilated small bowel in the left hemiabdomen. There is a transition point in the left hemiabdomen concerning for small bowel obstruction. The CT scan did show an aortic dissection propogating through the abdominal aorta through the right common iliac artery to the iliac bifurcation with a dissection flap extending to the superior mesenteric artery. The interpreting radiologist felt that these findings were unchanged when compared to CT scan performed on November 21, 2024. (Also of note patient did have a CT scan performed at [facility] on 11/30/2024 which also demonstrated patient had an abdominal aortic dissection with a dissection flap propagating to the superior mesenteric artery as well as the right common and external iliac arteries.). Labs included CBC where white blood cell count is elevated 10.9. Hemoglobin and hematocrit as well as a platelet count were normal. Chemistry profile showed sodium and potassium were normal. His BUN was normal. Creatinine was slightly elevated at 1.6. At the time my interview the patient was resting comfortably in bed he was in no distress Allergies Allergy/AdvReac Type Severity Reaction Status Date / Time dexamethasone Allergy Severe DIFFICULTY Verified 05/16/25 19:29 BREATHING/COUGH/HICCUPS adhesive tape Allergy Mild SKIN Verified 05/16/25 19:29 IRRITATION Home Medications Medication Instructions Recorded Confirmed Type multivitamin 1 tab PO DAILY 01/31/21 05/16/25 History sour valadez extract 1,000 mg 2,000 mg PO BID 10/06/22 05/16/25 History capsule (Tart Valadez Extract) Better Lungs 2 cap PO DAILY 09/10/24 05/16/25 History atorvastatin 20 mg tablet 10 mg PO HS 09/10/24 05/16/25 History bitter melon extract 750 mg tablet 750 mg PO DAILY 04/26/25 05/16/25 History finasteride 5 mg tablet 5 mg PO DAILY 04/26/25 05/16/25 History folic acid 1 mg tablet 1 mg PO DAILY 04/26/25 05/16/25 History gabapentin 300 mg capsule 300 mg PO HS 04/26/25 05/16/25 History kidney health bladder support 1 tab PO DAILY 04/26/25 05/16/25 History acetaminophen 300 mg-codeine 30 mg 2 tab PO Q6H PRN PAIN/MODERATE, 05/16/25 05/16/25 History tablet SEVERE acetaminophen 500 mg tablet 500 mg PO Q6H PRN PAIN/FEVER 05/16/25 05/16/25 History (Tylenol Extra Strength) ascorbic acid (vitamin C) 500 mg 500 mg PO DAILY 05/16/25 05/16/25 History tablet (Vitamin C) cyanocobalamin (vitamin B-12) 100 100 mcg PO DAILY 05/16/25 05/16/25 History mcg tablet (Vitamin B-12) duloxetine 30 mg capsule,delayed 30 mg PO BID 05/16/25 05/16/25 History release ferrous sulfate 325 mg (65 mg 325 mg PO WK 05/16/25 05/16/25 History iron) tablet gabapentin 100 mg capsule 100 mg PO QAM 05/16/25 05/16/25 History ibuprofen 200 mg tablet (Motrin IB) 200 mg PO Q6H PRN PAIN/FEVER 05/16/25 05/16/25 History magnesium oxide 800 mg PO DAILY 05/16/25 05/16/25 History omega-3 fatty acids 1,000 mg 2,000 mg PO BID 05/16/25 05/16/25 History capsule ondansetron 4 mg disintegrating 4 mg PO Q8H PRN NAUSEA/VOMITING 05/16/25 05/16/25 History tablet potassium gluconate 600 mg (99 mg) 600 mg PO DAILY 05/16/25 05/16/25 History tablet turmeric root extract 500 mg 500 mg PO DAILY 05/16/25 05/16/25 History capsule vitamin B complex 1 tab PO DAILY 05/16/25 05/16/25 History vitamin D3 125 mcg (5,000 1 cap PO QAM 05/16/25 05/16/25 History unit)-vitamin K2 100 mcg capsule Patient History Medical History Post op infection (~08/2020) mild post operative infection of mouth rx: Clindamycin Surgical History Mass of upper lobe of right lung 04-02-22 Robotic right VATS (thoracoscopy) Upper lobectomy and kiran dissection. Jose Pineda History of surgical procedure on mouth (08/31/20) excision of sublabial mass with repair History of surgical procedure on mouth (08/20/20) division of Keagan flap and debulking History of surgical procedure on mouth (07/20/20) re-excision of lower lip History of surgical procedure on mouth (07/13/20) re-excision of lesion with Keagan flap reconstruction from rt upper lip Hx of biopsy (07/09/20) wedge resection of 1/2 of lower lip with SLN bx Hx of repair of rotator cuff (~2004) History of repair of rotator cuff (~2003) Family History Denies family history of Ovarian cancer Prostate cancer Myocardial infarction Breast cancer Colorectal cancer Social History Smoking Status: Former smoker Tobacco Type: Cigarettes Age Started Using Tobacco: 16; Age Quit Using Tobacco: 65; packs per day: 1; Second Hand Exposure: No; Do You Dip or Chew Tobacco: No; Hx Alcohol Use: No Hx Substance Use: No Preferred Language: Maltese Communication Ability: Effective Visual Impairment: No Limitations Hearing Ability: Normal 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 Beliefs That Will Affect Care: None marital status: Current Living Situation: Spouse current occupational status: employed 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 [employer] How many Children do You have: 1 Feels Safe at Home: Yes Childhood Exposure to Second-Hand Smoke: Yes Diet: regular Diet Comment: "I eat all that I can" caffeine: Yes (coffee 2 cups per day) during the past year weight has: remained stable Dental Care, Regularly: No Physical Activity Frequency: Daily Physical Activity Frequency Comment: "I'm a pretty active person" Seatbelt Use: never Sunscreen Use: No Assistive Devices: Glasses and Walker Review of Systems Review of Systems: All systems reviewed & are unremarkable except as noted in HPI & below Physical Exam Physical Exam: The patient had a well-healed median sternotomy incision. His sternum. Grossly stable Constitutional: WD/WN, vitals as above Eyes: no conjunctival abnormality ENMT: Ears: no hearing impairment and no external ear abnormality Oral mucosa appears dry Neck: trachea midline Respiratory: normal respiratory effort; no respiratory distress and no labored breathing Cardiovascular: Rate/Rhythm: regular rate and regular rhythm Gastrointestinal (Abdomen): At the time my exam the patient's abdomen was soft without distention. There is minimal to no pain with palpation. There is no tympany to percussion. There is no rebound tenderness, guarding, or signs of peritonitis. Patient had a well- healed midline incision. Musculoskeletal: No calf tenderness Skin: no rashes Neurologic: The patient is able to answer questions appropriately. He is able to move all 4 extremities and follow simple commands appropriately Psychiatric: A+Ox3, euthymic affect Results & Data Vital Signs (Past 12 Hours) Vital Signs Temp Pulse Resp BP Pulse Ox O2 Del Method 05/16/25 17:59 78 05/16/25 17:29 35.5 C L 88 16 108/71 96 Room Air PG Care Time/CCT Total # of Minutes Spent Total Time Spent with Patient: Total time spent is greater than 50% in coordination of care (as documented) at patient's floor/unit and/or counseling patient: Coding Level of Care Code 18667 INT INP/OBS CARE 3/75MIN Diagnoses Small bowel obstruction K56.609
[2025-05-16] MEDS: SODIUM CHLORIDE 0.9% 1,000 ML IV SCH (21:27)
[2025-05-16] MEDS ORDERED: HYDROmorphone INJ 0.5 MG/0.5 ML SYR IV PRN ×2 (22:09)
[2025-05-16] MEDS: MoRPHine SULFATE 2 MG/ML CARP IV STA (22:29)
[2025-05-16] MEDS: Patient's HEIGHT &/or WEIGHT Needed STA (22:40)
[2025-05-16] MEDS: LIDOCAINE 2% JELLY 5 ML TUBE EXT ONE (22:40)
[2025-05-16] MEDS: LIDOCAINE 2% JELLY 5 ML TUBE EXT STA (22:40)
[2025-05-16] MEDS: SODIUM CHLORIDE 0.9% 500 ML IV ONE (23:10)
[2025-05-16] MEDS: ONDANSETRON INJ 2 MG/ML 2 ML VIAL IV PRN (23:22)
--- NOTE | 2025-05-17 00:41 | XRay Report ---
Exam(s): XR KUB EXAM: XR Chest, 1 View CLINICAL HISTORY: Reason for exam: NGT placement per Simone Calero. TECHNIQUE: Frontal view of the chest. COMPARISON: No relevant prior studies available. FINDINGS: A nasogastric tube is noted coiled in the upper chest overlying the esophagus. Lungs: No consolidation. Pleural space: No pleural effusion is seen. No pneumothorax. Heart: The patient is status post midline sternotomy. The heart is normal in size.. Mediastinum: there is mild uncoiling of thoracic aorta. Bones/joints: Grossly unremarkable. IMPRESSION: A nasogastric tube is noted coiled in the upper chest overlying the upper esophagus. It should be repositioned into the stomach. Electronically signed by: Kirk Alvarado MD 05/17/25 00:40 AM
--- NOTE | 2025-05-17 03:17 | History & Physical Report ---
Date of Service May 16, 2025 Assessment & Plan (1) SBO (small bowel obstruction): Plan: 69-year-old male with past medical history significant for dyslipidemia, prediabetes, history of right upper lung lung cancer, COPD, allergic rhinitis, abdominal aortic aneurysm, dissection of aorta s/p repair, paroxysmal atrial fibrillation, systolic congestive heart failure, history of CAD, severe protein calorie malnutrition, dysphagia, GERD, history of malignant melanoma of skin, history of CVA, history of cardiac arrest presents with several episodes of nausea vomiting and found to have small bowel obstruction. Patient lives with his . Son is also in the room. Since yesterday night patient having multiple episodes of vomitings. Some abdominal discomfort. Had normal bowel movements in the morning. Because of nausea and vomiting was brought to the [facility] and found to have small bowel obstruction. Patient currently denies any abdominal pain. Denies any headache. Denies any chest pain. Denies shortness of breath. No nausea. No cough. No fevers. Hemodynamics are okay. After dose of morphine patient blood pressure dropped but improved with the fluids. Patient initially refused NG tube but as he was having again episode of nausea/vomiting surgery tried to attempt NG tube placement but was not successful. Surgery also talked with the [facility] about the CAT scan findings and was thought to be expected findings from the recent aortic dissection. Currently hemodynamics are okay. On November 16 2024 patient presented to [facility] ED with chest pain and inability to move his legs and in ED had a PEA arrest and was shocked once and taken to the [facility] where he was found to have ascending aortic dissection and which was confirmed with a CAT scan which showed ascending aortic dissection extending through the arch and down to the iliac arteries and also noted a pericardial effusion of which about 150 mL bloody fluid was drained. He required epi and levo drips and transferred [place] [facility] [place] [facility] was directly taken to the OR underwent aortic dissection repair and was transferred to critical care. Required support of multiple pressors which were weaned over time. Required multiple blood products. Postoperative A-fib treated with IV amiodarone as well as oral. His abdomen was distended after surgery and CAT scan was concerning for ischemic colitis as well as dissection/occlusion of his SMA. He was taken to the OR and was status post expiratory laparotomy by general surgery on 11/17/2024 at which point his abdomen was left open. He went for delayed chest closure and he underwent cecal wedge/partial colectomy and his abdomen was closed a few days later. He was placed on tube feeds. CT head showed multiple strokes and was not able to follow commands or move his extremities. He was status post tracheostomy and PEG tube placement on 11/25/2024. His trach was removed on 12/15/2024. He was discharged to SNF on 12/22/2024. Currently patient is able to eat regular food. PEG tube was removed. Ambulates with a walker. Alert and oriented and able to speak and converse. As per family he sometimes mixes words Patient also has history of melanoma of lower lip s/p surgical resection/radiation treatment completed on 10/19/2020. He presented again with right facial pain and MRI brain revealing right CPA/Meckel's cave enhancing lesion. 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 Patient had PET scan recently which seems did not showed any metastatic lesion. 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 Needs follow-up Paroxysmal atrial fibrillation Postop History of congestive CHF EF of 45% in November 2024 EF 52% in February 2025 Monitor for volume overload History of CVA Post aortic dissection On statin Followed with neurology. No antiplatelets per neurology for now BPH On finasteride to start when able to take p.o. DVT prophylaxis SCDs Disposition Telemetry because of hypotensive episode Full code History of Present Illness Chief Complaint: Small bowel obstruction Primary Care Provider: Sumaya Davis MD 69-year-old male with past medical history significant for dyslipidemia, p rediabetes, history of right upper lung lung cancer, COPD, allergic rhinitis, abdominal aortic aneurysm, dissection of aorta s/p repair, paroxysmal atrial fibrillation, systolic congestive heart failure, history of CAD, severe protein calorie malnutrition, dysphagia, GERD, history of malignant melanoma of skin, history of CVA, history of cardiac arrest presents with several episodes of nausea vomiting and found to have small bowel obstruction. Patient lives with his . Son is also in the room. Since yesterday night patient having multiple episodes of vomitings. Some abdominal discomfort. Had normal bowel movements in the morning. Because of nausea and vomiting was brought to the hospital and found to have small bowel obstruction. Patient currently denies any abdominal pain. Denies any headache. Denies any chest pain. Denies shortness of breath. No nausea. No cough. No fevers. Hemodynamics are okay. After dose of morphine patient blood pressure dropped but improved with the fluids. Patient initially refused NG tube but as he was having again episode of nausea/vomiting surgery tried to attempt NG tube placement but was not successful. Surgery also talked with the [facility] about the CAT scan findings and was thought to be expected findings from the recent aortic dissection. Currently hemodynamics are okay. On November 16 2024 patient presented to [facility] ED with chest pain and inability to move his legs and in ED had a PEA arrest and was shocked once and taken to [facility] where he was found to have ascending aortic dissection and which was confirmed with a CAT scan which showed ascending aortic dissection extending through the arch and down to the iliac arteries and also noted a pericardial effusion of which about 150 mL bloody fluid was drained. He required epi and levo drips and transferred to [facility]. [place] [facility] was directly taken to the OR underwent aortic dissection repair and was transferred to critical care. Required support of multiple pressors which were weaned over time. Required multiple blood products. Postoperative A-fib treated with IV amiodarone as well as oral. His abdomen was distended after surgery and CAT scan was concerning for ischemic colitis as well as dissection/occlusion of his SMA. He was taken to the OR and was status post expiratory laparotomy by general surgery on 11/17/2024 at which point his abdomen was left open. He went for delayed chest closure and he underwent cecal wedge/partial colectomy and his abdomen was closed a few days later. He was placed on tube feeds. CT head showed multiple strokes and was not able to follow commands or move his extremities. He was status post tracheostomy and PEG tube placement on 11/25/2024. His trach was removed on 12/15/2024. He was discharged to SNF on . Currently patient is able to eat regular food. PEG tube was removed. Ambulates with a walker. Alert and oriented and able to speak and converse. As per family he sometimes mixes words Patient also has history of melanoma of lower lip s/p surgical resection/radiation treatment completed on 10/19/2020. He presented again with right facial pain and MRI brain revealing right CPA/Meckel's cave enhancing lesion. 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 Patient had PET scan recently which seems did not showed any metastatic lesion. 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 Past medical history. As mentioned above Past surgical history. Ascending aortic aneurysm graft with bypass for aortic dissection. Colonoscopy. EGD. Excision of lesion of the mouth. Exploratory laparoscopy. Tracheostomy. IR biopsy. IR chest tube. Robotic thorascopic with lymphadenectomy. Partial excision of lip. Reconstruction of lip. Craniectomy posterior fossa excision. Repair of hydrocele. Closure of median sternotomy separation. Thorascopic with lobectomy right side. Social history. . Quit smoking 2019. Smoked 1 pack a day for 40 years. No alcohol use. No drug use. Family history. Mother had pacemaker. Hypertension. Father had ND. Hypertension. Allergies Allergy/AdvReac Type Severity Reaction Status Date / Time dexamethasone Allergy Severe DIFFICULTY Verified 05/16/25 19:29 BREATHING/COUGH/HICCUPS adhesive tape Allergy Mild SKIN Verified 05/16/25 19:29 IRRITATION Home Medications Medication Instructions Recorded Confirmed Type multivitamin 1 tab PO DAILY 01/31/21 05/16/25 History sour valadez extract 1,000 mg 2,000 mg PO BID 10/06/22 05/16/25 History capsule (Tart Valadez Extract) Better Lungs 2 cap PO DAILY 09/10/24 05/16/25 History atorvastatin 20 mg tablet 10 mg PO HS 09/10/24 05/16/25 History bitter melon extract 750 mg tablet 750 mg PO DAILY 04/26/25 05/16/25 History finasteride 5 mg tablet 5 mg PO DAILY 04/26/25 05/16/25 History folic acid 1 mg tablet 1 mg PO DAILY 04/26/25 05/16/25 History gabapentin 300 mg capsule 300 mg PO HS 04/26/25 05/16/25 History kidney health bladder support 1 tab PO DAILY 04/26/25 05/16/25 History acetaminophen 300 mg-codeine 30 mg 2 tab PO Q6H PRN PAIN/MODERATE, 05/16/25 05/16/25 History tablet SEVERE acetaminophen 500 mg tablet 500 mg PO Q6H PRN PAIN/FEVER 05/16/25 05/16/25 History (Tylenol Extra Strength) ascorbic acid (vitamin C) 500 mg 500 mg PO DAILY 05/16/25 05/16/25 History tablet (Vitamin C) cyanocobalamin (vitamin B-12) 100 100 mcg PO DAILY 05/16/25 05/16/25 History mcg tablet (Vitamin B-12) duloxetine 30 mg capsule,delayed 30 mg PO BID 05/16/25 05/16/25 History release ferrous sulfate 325 mg (65 mg 325 mg PO WK 05/16/25 05/16/25 History iron) tablet gabapentin 100 mg capsule 100 mg PO QAM 05/16/25 05/16/25 History ibuprofen 200 mg tablet (Motrin IB) 200 mg PO Q6H PRN PAIN/FEVER 05/16/25 05/16/25 History magnesium oxide 800 mg PO DAILY 05/16/25 05/16/25 History omega-3 fatty acids 1,000 mg 2,000 mg PO BID 05/16/25 05/16/25 History capsule ondansetron 4 mg disintegrating 4 mg PO Q8H PRN NAUSEA/VOMITING 05/16/25 05/16/25 History tablet potassium gluconate 600 mg (99 mg) 600 mg PO DAILY 05/16/25 05/16/25 History tablet turmeric root extract 500 mg 500 mg PO DAILY 05/16/25 05/16/25 History capsule vitamin B complex 1 tab PO DAILY 05/16/25 05/16/25 History vitamin D3 125 mcg (5,000 1 cap PO QAM 05/16/25 05/16/25 History unit)-vitamin K2 100 mcg capsule Past Med/Surg History Problem List (Updated 05/16/25 @ 22:47 by Jose Gutierres DO) SBO (small bowel obstruction) (Acute) Small bowel obstruction Neoplasm of base of skull (Chronic) H/O head and neck radiation Status post aortic dissection repair H/O: stroke with residual effects Thoracic aortic dissection Acute pericardial effusion (Acute) Respiratory arrest (Acute) Cardiac arrest (Acute) COPD (chronic obstructive pulmonary disease) HTN (hypertension) Oral thrush AOM (acute otitis media) Malignant neoplasm of right upper lobe of lung Multiple lung nodules on CT (Chronic) 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 [facility] [place] History of surgical procedure on mouth (08/31/20) excision of sublabial mass with repair History of surgical procedure on mouth (08/20/20) division of Keagan flap and debulking History of surgical procedure on mouth (07/20/20) re-excision of lower lip History of surgical procedure on mouth (07/13/20) re-excision of lesion with Ke[place] flap reconstruction from rt upper lip Hx of biopsy (07/09/20) wedge resection of 1/2 of lower lip with SLN bx Hx of repair of rotator cuff (~2004) History of repair of rotator cuff (~2003) Family History Denies family history of Ovarian cancer Prostate cancer Myocardial infarction Breast cancer Colorectal cancer Social History Smoking Status: Former smoker Tobacco Type: Cigarettes Age Started Using Tobacco: 16; Age Quit Using Tobacco: 65; packs per day: 1; Second Hand Exposure: No; Do You Dip or Chew Tobacco: No; Hx Alcohol Use: No Hx Substance Use: No Preferred Language: Kyrgyz Communication Ability: Effective Visual Impairment: No Limitations Hearing Ability: Normal Wheel And Pinion Inspector Required: No Beliefs That Will Affect Care: None marital status: Current Living Situation: Spouse current occupational status: employed 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 [employer] How many Children do You have: 1 Feels Safe at Home: Yes Childhood Exposure to Second-Hand Smoke: Yes Diet: regular Diet Comment: "I eat all that I can" caffeine: Yes (coffee 2 cups per day) during the past year weight has: remained stable Dental Care, Regularly: No Physical Activity Frequency: Daily Physical Activity Frequency Comment: "I'm a pretty active person" Seatbelt Use: never Sunscreen Use: No Assistive Devices: Glasses and Walker Review of Systems Review of Systems: All systems reviewed & are unremarkable except as noted in HPI & below Physical Exam Physical Exam: General- Not in acute distress Head- atraumatic Eyes- PERRL. ENT- oropharynx dry Neck- supple, no JVD. Lungs- clear to auscultation no wheezing or crackles Heart- regular rate and rhythm; no murmur, no gallop. Abdomen- sluggish bowel sounds, soft, mild diffuse discomfort, no rigidity, Extremities- no pretibial edema, no erythema seen Neuro- alert, oriented x 3; PERRL, no facial palsy; no dysarthria; moves extremities Results & Data Results & Data Vital Signs (Past 12 Hours) Vital Signs Temp Pulse Pulse Resp BP BP Pulse Ox 05/16/25 21:00 83 18 166/93 H 94 05/16/25 17:59 78 05/16/25 17:29 35.5 C L 88 16 108/71 96 O2 Del Method 05/16/25 21:00 Room Air 05/16/25 17:59 05/16/25 17:29 Room Air Diagnostic Findings Laboratory Results WBC 10.91 K/ul (4.8-10.8) H 05/16/25 17:44 RBC 5.18 M/uL (4.70-6.10) 05/16/25 17:44 Hgb 14.9 g/dl (14.0-18.0) 05/16/25 17:44 Hct 45.0 % (42.0-52.0) 05/16/25 17:44 MCV 86.9 fL (80.0-100.0) 05/16/25 17:44 MCH 28.8 pg (25.0-34.0) 05/16/25 17:44 MCHC 33.1 g/dL (32.0-36.0) 05/16/25 17:44 RDW Std Deviation 47.3 fL (36.4-46.3) H 05/16/25 17:44 RDW Coeff of Navarro 15.0 % (11.5-14.5) H 05/16/25 17:44 Plt Count 271 K/uL (130-400) 05/16/25 17:44 MPV 9.9 fL (9.4-12.4) 05/16/25 17:44 Immature Gran % (Auto) 0.5 % 05/16/25 17:44 Neut % (Auto) 80.0 % 05/16/25 17:44 Lymph % (Auto) 10.4 % 05/16/25 17:44 [place] % (Auto) 8.6 % 05/16/25 17:44 Eos % (Auto) 0.2 % 05/16/25 17:44 Baso % (Auto) 0.3 % 05/16/25 17:44 Neut # (Auto) 8.74 K/uL (1.40-6.50) H 05/16/25 17:44 Lymph # (Auto) 1.13 K/uL (1.20-3.40) L 05/16/25 17:44 [place] # (Auto) 0.94 K/uL (0.11-0.59) H 05/16/25 17:44 Eos # (Auto) 0.02 K/uL (0.00-0.50) 05/16/25 17:44 Baso # (Auto) 0.03 K/uL (0.00-0.20) 05/16/25 17:44 Immature Gran # (Auto) 0.05 K/uL (0.01-0.20) 05/16/25 17:44 Sodium 142 mmol/L (136-145) 05/16/25 17:44 Potassium 4.0 mmol/L (3.5-5.1) 05/16/25 17:44 Chloride 102 mmol/L (98-107) 05/16/25 17:44 Carbon Dioxide 29 mmol/L (21-32) 05/16/25 17:44 Anion Gap 11 (3-11) 05/16/25 17:44 BUN 16 mg/dl (6-23) 05/16/25 17:44 Creatinine 1.61 mg/dl (0.6-1.4) H 05/16/25 17:44 Est Cr Clr Drug Dosing Not Reportable 05/16/25 17:44 eGFR 46.58 05/16/25 17:44 BUN/Creatinine Ratio 9.9 (10-20) L 05/16/25 17:44 Glucose 165 mg/dl (70-99(Fasting)) H 05/16/25 17:44 Lactate 2.0 mmol/L (0.4-2.0) 05/16/25 20:34 Calcium 10.9 mg/dl (8.6-10.3) H 05/16/25 17:44 Total Bilirubin 0.7 mg/dl (0.2-1.0) 05/16/25 17:44 AST 31 U/L (13-39) 05/16/25 17:44 ALT 21 U/L (7-52) 05/16/25 17:44 Alkaline Phosphatase 120 U/L (34-104) H 05/16/25 17:44 Troponin I High Sens 7.6 pg/ml (0-20) 05/16/25 17:44 Total Protein 8.3 gm/dl (6.0-8.3) 05/16/25 17:44 Albumin 4.9 gm/dl (3.4-5.0) 05/16/25 17:44 Globulin 3.4 gm/dl (2.5-4.0) 05/16/25 17:44 Albumin/Globulin Ratio 1.4 (0.9-2) 05/16/25 17:44 Impressions Abdomen/Pelvis CT 05/16/25 18:02 CT ABDOMEN and PELVIS with INTRAVENOUS CONTRAST HISTORY: Abdominal pain TECHNIQUE: CT abdomen and pelvis with contrast. IV CONTRAST: 100 mL of OMNIPAQUE 300 ENTERIC CONTRAST: Not Given COMPARISON: FINDINGS: AORTA: Redemonstration type B aortic dissection continues through the abdominal aorta and through the right common iliac artery to the iliac bifurcation. Again the dissection flaps extend into the SMA. There is also redemonstrated infrarenal abdominal aortic aneurysm measuring up to 4.0 cm. These finds are not significantly changed since the CTA evaluation of November 21, 2024. LOWER CHEST: Emphysema LIVER: No focal lesion identified. Hepatic steatosis and hepatomegaly. GALLBLADDER/BILIARY: Unremarkable gallbladder. No abnormal biliary dilatation. SPLEEN: Unremarkable. PANCREAS: Unremarkable. ADRENALS: Unremarkable. KIDNEYS: Unremarkable. No stones or hydronephrosis identified. PERITONEUM/RETROPERITONEUM. No lymphadenopathy by size criteria. No aortic aneurysm. GASTROINTESTINAL: There are multiple loops of dilated small bowel in the left hemiabdomen with a transition point noted in the left hemiabdomen just to the left of the abdominal aorta (series 2, image 36). Distal esophageal wall thickening. Surgical material noted by the cecum REPRODUCTIVE: Enlarged prostate gland with coarse calcifications. The prostate gland impinges upon the urinary bladder outlet. URINARY BLADDER: Mildly distended with wall thickening ABDOMINAL WALL: Small fat-containing right inguinal hernia Midline incisional scar. BONES: No acute findings. IMPRESSION: Small obstruction with a transition point in the left hemiabdomen as above. Redemonstration type B aortic dissection continues through the abdominal aorta and through the right common iliac artery to the iliac bifurcation. Again the dissection flaps extends into the SMA. There is also redemonstrated infrarenal abdominal aortic aneurysm measuring up to 4.0 cm. These finds are not significantly changed since the CTA evaluation of November 21, 2024. Prostamegaly with the urinary bladder outlet obstruction. Inflammatory changes of the urinary bladder could be due to cystitis. Distal esophageal wall thickening. This may be due to esophagitis Notification of clinician of alert: [facility] was notified about above findings by phone on May 16, 2025 at 8:03 PM by Xavier Young MD. Readback confirmation was obtained. Electronically signed by Xavier Young 05-16-2025 8:06 PM KUB X-Ray 05/16/25 22:25 Exam(s): XR KUB EXAM: XR Chest, 1 View CLINICAL HISTORY: Reason for exam: NGT placement per Simone Calero. TECHNIQUE: Frontal view of the chest. COMPARISON: No relevant prior studies available. FINDINGS: A nasogastric tube is noted coiled in the upper chest overlying the esophagus. Lungs: No consolidation. Pleural space: No pleural effusion is seen. No pneumothorax. Heart: The patient is status post midline sternotomy. The heart is normal in size.. Mediastinum: there is mild uncoiling of thoracic aorta. Bones/joints: Grossly unremarkable. IMPRESSION: A nasogastric tube is noted coiled in the upper chest overlying the upper esophagus. It should be repositioned into the stomach. Electronically signed by: Kirk Alvarado MD 05/17/25 00:40 AM ECG Additional Comments: ECG Normal sinus rhythm with rate of 87. Left axis deviation. T wave inversions in lateral leads Code Status & VTE Plan VTE Prophylaxis Plan VTE Prophylaxis will be ordered: Yes
[2025-05-17] MEDS: ACETAMINOPHEN 1,000 MG/100 ML VIAL IV PRN (05:04)
[2025-05-17 06:34] LABS: Hematocrit (blood only) 38.3 % (42.0-52.0); Hemoglobin 12.2 g/dl (14.0-18.0); Immature Granulocytes # (auto) 0.05 K/uL (0.01-0.20); Immature Granulocytes % (auto) 0.4 %; Mean Corpuscular Hemoglobin 28.7 pg (25.0-34.0); Mean Corpuscular Volume 90.1 fL (80.0-100.0); Platelet Count 213 K/uL (130-400); RDW Standard Deviation 49.5 fL (36.4-46.3); Red Blood Count 4.25 M/uL (4.70-6.10); White Blood Count 12.42 K/ul (4.8-10.8)
[2025-05-17 07:05] LABS: Anion Gap 12.0 (3-11); Calcium 9.6 mg/dl (8.6-10.3); Carbon Dioxide 24.0 mmol/L (21-32); Chloride 107.0 mmol/L (98-107); Magnesium 1.9 mg/dl (1.7-2.4); Potassium 3.9 mmol/L (3.5-5.1); Sodium 143.0 mmol/L (136-145)
[2025-05-17 07:10] LABS: Blood Urea Nitrogen 19.0 mg/dl (6-23); Creatinine Clr Calc Pharmacy 36.1 ml/min; Glucose 130.0 mg/dl (70-99(Fasting))
[2025-05-17 08:26] LABS: Hemoglobin A1C 6.0 % (4.5-5.6)
[2025-05-17] MEDS ORDERED: MAGNESIUM OXIDE 400 MG TAB PO SCH (09:00)
[2025-05-17] MEDS ORDERED: GABAPENTIN 100 MG CAP PO SCH (09:00)
[2025-05-17] MEDS ORDERED: FINASTERIDE 5 MG TAB PO SCH (09:00)
--- NOTE | 2025-05-17 09:49 | Surgery Progress Note ---
Date of Service May 17, 2025 Assessment & Plan (1) SBO (small bowel obstruction): Plan: Small bowel obstruction, passing some flatus but still with nausea and a small amount of emesis Continue with nonoperative management We can hold off on NG tube for now as it was difficult to place. If continues to vomit may need to reattempt KUB tomorrow If improvement by this afternoon may start on clear liquids Will continue to follow, call with questions or concerns Admission and Anticipated Discharge Date Admission Date: May 16, 2025 Subjective Admitted with SBO. Still with some nausea and small amount of emesis, feels much better than yesterday. Did pass some gas. Physical Exam Constitutional: WD/WN, vitals as above + thin Respiratory: normal respiratory effort, lungs clear to auscultation Cardiovascular: RRR, no murmur, no edema Gastrointestinal (Abdomen): normal bowel sounds, soft, nontender, no hepatosplenomegaly Inspection/Auscultation: + abdominal surgical scar Results & Data Vital Signs (Past 12 Hours) Vital Signs Temp Pulse Pulse Resp BP BP Pulse Ox 05/17/25 08:00 82 05/17/25 07:34 37.5 C 76 16 119/63 95 05/17/25 02:37 37.1 C 82 18 121/70 93 05/17/25 00:25 05/17/25 00:20 36.7 C 71 16 148/69 H 93 05/16/25 23:53 69 20 103/57 L 109/63 94 05/16/25 23:49 70 18 83/48 L 92 05/16/25 23:40 68 22 104/49 L 93 05/16/25 23:37 69 30 H 89/51 L 92 05/16/25 23:25 72 21 109/61 92 05/16/25 23:21 98/60 L 05/16/25 23:20 76 26 H 84/51 L 92 05/16/25 23:00 69 18 75/51 L 05/16/25 22:40 72 18 106/64 05/16/25 22:30 79 20 142/78 H 05/16/25 21:53 79 O2 Del Method 05/17/25 08:00 05/17/25 07:34 Room Air 05/17/25 02:37 Room Air 05/17/25 00:25 Room Air 05/17/25 00:20 Room Air 05/16/25 23:53 Room Air 05/16/25 23:49 Room Air 05/16/25 23:40 Room Air 05/16/25 23:37 Room Air 05/16/25 23:25 Room Air 05/16/25 23:21 05/16/25 23:20 Room Air 05/16/25 23:00 05/16/25 22:40 05/16/25 22:30 05/16/25 21:[address] scan personally reviewed and interpreted and agree with the assessment of small bowel obstruction. Abdomen/Pelvis CT 05/16/25 18:02 CT ABDOMEN and PELVIS with INTRAVENOUS CONTRAST HISTORY: Abdominal pain TECHNIQUE: CT abdomen and pelvis with contrast. IV CONTRAST: 100 mL of OMNIPAQUE 300 ENTERIC CONTRAST: Not Given COMPARISON: FINDINGS: AORTA: Redemonstration type B aortic dissection continues through the abdominal aorta and through the right common iliac artery to the iliac bifurcation. Again the dissection flaps extend into the SMA. There is also redemonstrated infrarenal abdominal aortic aneurysm measuring up to 4.0 cm. These finds are not significantly changed since the CTA evaluation of November 21, 2024. LOWER CHEST: Emphysema LIVER: No focal lesion identified. Hepatic steatosis and hepatomegaly. GALLBLADDER/BILIARY: Unremarkable gallbladder. No abnormal biliary dilatation. SPLEEN: Unremarkable. PANCREAS: Unremarkable. ADRENALS: Unremarkable. KIDNEYS: Unremarkable. No stones or hydronephrosis identified. PERITONEUM/RETROPERITONEUM. No lymphadenopathy by size criteria. No aortic aneurysm. GASTROINTESTINAL: There are multiple loops of dilated small bowel in the left hemiabdomen with a transition point noted in the left hemiabdomen just to the left of the abdominal aorta (series 2, image 36). Distal esophageal wall thickening. Surgical material noted by the cecum REPRODUCTIVE: Enlarged prostate gland with coarse calcifications. The prostate gland impinges upon the urinary bladder outlet. URINARY BLADDER: Mildly distended with wall thickening ABDOMINAL WALL: Small fat-containing right inguinal hernia Midline incisional scar. BONES: No acute findings. IMPRESSION: Small obstruction with a transition point in the left hemiabdomen as above. Redemonstration type B aortic dissection continues through the abdominal aorta and through the right common iliac artery to the iliac bifurcation. Again the dissection flaps extends into the SMA. There is also redemonstrated infrarenal abdominal aortic aneurysm measuring up to 4.0 cm. These finds are not significantly changed since the CTA evaluation of November 21, 2024. Prostamegaly with the urinary bladder outlet obstruction. Inflammatory changes of the urinary bladder could be due to cystitis. Distal esophageal wall thickening. This may be due to esophagitis Notification of clinician of alert: [facility] ED was notified about above findings by phone on May 16, 2025 at 8:03 PM by Xavier Young MD. Readback confirmation was obtained. Electronically signed by Xavier Young 05-16-2025 8:06 PM KUB X-Ray 05/16/25 22:25 Exam(s): XR KUB EXAM: XR Chest, 1 View CLINICAL HISTORY: Reason for exam: NGT placement per Simone Calero. TECHNIQUE: Frontal view of the chest. COMPARISON: No relevant prior studies available. FINDINGS: A nasogastric tube is noted coiled in the upper chest overlying the esophagus. Lungs: No consolidation. Pleural space: No pleural effusion is seen. No pneumothorax. Heart: The patient is status post midline sternotomy. The heart is normal in size.. Mediastinum: there is mild uncoiling of thoracic aorta. Bones/joints: Grossly unremarkable. IMPRESSION: A nasogastric tube is noted coiled in the upper chest overlying the upper esophagus. It should be repositioned into the stomach. Electronically signed by: Kirk Alvarado MD 05/17/25 00:40 AM PG Care Time/CCT Total # of Minutes Spent Total Time Spent with Patient: Total time spent is greater than 50% in coordination of care (as documented) at patient's floor/unit and/or counseling patient: Coding Level of Care Code 95563 SUB INP/OBS CARE 2/35MIN Diagnoses SBO (small bowel obstruction) K56.609
--- NOTE | 2025-05-17 12:48 | Hospitalist Progress Note ---
Date of Service May 17, 2025 Assessment & Plan (1) SBO (small bowel obstruction): Plan: 69-year-old male with past medical history significant for dyslipidemia, prediabetes, history of right upper lung lung cancer, COPD, allergic rhinitis, abdominal aortic aneurysm, dissection of aorta s/p repair, paroxysmal atrial fibrillation, systolic congestive heart failure, history of CAD, severe protein calorie malnutrition, dysphagia, GERD, history of malignant melanoma of skin, history of CVA, history of cardiac arrest presents with several episodes of nausea vomiting and found to have small bowel obstruction. Patient lives with his . Son is also in the room. Since yesterday night patient having multiple episodes of vomiting. Some abdominal discomfort. Had normal bowel movements in the morning. Because of nausea and vomiting was brought to the hospital and found to have small bowel obstruction. Patient currently denies any abdominal pain. Denies any headache. Denies any chest pain. Denies shortness of breath. No nausea. No cough. No fevers. Hemodynamics are okay. After dose of morphine patient blood pressure dropped but improved with the fluids. Patient initially refused NG tube but as he was having again episode of nausea/vomiting surgery tried to attempt NG tube placement but was not successful. Surgery also talked with the [facility] about the CAT scan findings and was thought to be expected findings from the recent aortic dissection. Currently hemodynamics are okay. On November 16 2024 patient presented to [facility] ED with chest pain and inability to move his legs and in ED had a PEA arrest and was shocked once and taken to the [facility] where he was found to have ascending aortic dissection and which was confirmed with a CAT scan which showed ascending aortic dissection extending through the arch and down to the iliac arteries and also noted a pericardial effusion of which about 150 mL bloody fluid was drained. He required epi and levo drips and transferred to [facility]. At [facility] was directly taken to the OR underwent aortic dissection repair and was transferred to critical care. Required support of multiple pressors which were weaned over time. Required multiple blood products. Postoperative A-fib treated with IV amiodarone as well as oral. His abdomen was distended after surgery and CAT scan was concerning for ischemic colitis as well as dissection/occlusion of his SMA. He was taken to the OR and was status post expiratory laparotomy by general surgery on 11/17/2024 at which point his abdomen was left open. He went for delayed chest closure and he underwent cecal wedge/partial colectomy and his abdomen was closed a few days later. He was placed on tube feeds. CT head showed multiple strokes and was not able to follow commands or move his extremities. He was status post tracheostomy and PEG tube placement on 11/25/2024. His trach was removed on 12/15/2024. He was discharged to SNF on 12/22/2024. Currently patient is able to eat regular food. PEG tube was removed. Ambulates with a walker. Alert and oriented and able to speak and converse. As per family he sometimes mixes words Patient also has history of melanoma of lower lip s/p surgical resection/radiation treatment completed on 10/19/2020. He presented again with right facial pain and MRI brain revealing right CPA/Meckel's cave enhancing lesion. 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 Patient had PET scan recently which seems did not showed any metastatic lesion. 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 Small bowel obstruction Presents with nausea, vomiting and abdominal pain Recently surgery in November 2024; had undergone extensive surgery for ischemic colitis. Had PEG/tracheostomy which was removed over the course of next few months Conservative management N.p.o., IV fluids, IV Tylenol as needed KUB tomorrow a.m. 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 Needs follow-up as outpatient Paroxysmal atrial fibrillation Postop- monitor in telemetry History of congestive CHF EF of 45% in November 2024 EF 52% in February 2025 Monitor for volume overload History of CVA Post aortic dissection On statin Followed with neurology. No antiplatelets per neurology for now BPH On finasteride to start when able to take p.o. DVT prophylaxis SCDs Disposition Telemetry Full code Please note the above document was generated using voice recognition software. It may contain grammatical, syntax or spelling errors. Any formal questions or concerns about the content, text or information contained within the body of this dictation should be directly addressed to the provider for clarification Admission and Anticipated Discharge Date Admission Date: May 16, 2025 Subjective Patient seen and examined at bedside. He reports feeling nauseous; had some dry heaving; no significant vomitus. Denies abdominal pain at this time. He reports that he is getting hungry. Review of Systems Review of Systems: All systems reviewed & are unremarkable except as noted in Subjective Physical Exam Physical Exam: Constitutional: Alert oriented x 3; not in distress. Respiratory: normal respiratory effort, lungs clear to auscultation, no wheeze, rales, rhonchi. Normal insp/exp effort, no accessory muscle use Cardiovascular: RRR, no murmur, no edema Vessels: no JVD or carotid bruit Chest: normal inspection of chest Abdomen: Slightly distended. Nontender Musculoskeletal: no cyanosis or clubbing, extremities motor strength 5/5 Skin: no rashes, warm and dry normal turgor Neurologic: PERRL, EOMI, accommodation nl, no face palsy, no dysarthria CN's II- XI intact bilaterally and moves all extremities Results & Data Results & Data Vital Signs (Past 12 Hours) Vital Signs Temp Pulse Pulse Resp BP BP Pulse Ox 05/17/25 11:41 36.7 C 81 18 143/69 H 95 05/17/25 08:00 82 05/17/25 07:34 37.5 C 76 16 119/63 95 05/17/25 02:37 37.1 C 82 18 121/70 93 O2 Del Method 05/17/25 11:41 Room Air 05/17/25 08:00 05/17/25 07:34 Room Air 05/17/25 02:37 Room Air
--- NOTE | 2025-05-17 15:01 | Electrocardiogram Report ---
Test Reason : Blood Pressure : */* mmHG Vent. Rate : 80 BPM Atrial Rate : 80 BPM P-R Int : 120 ms QRS Dur : 94 ms QT Int : 380 ms P-R-T Axes : 45 -41 113 degrees QTcB Int : 438 ms Normal sinus rhythm Left axis deviation Minimal voltage criteria for LVH, may be normal variant T wave abnormality, consider lateral ischemia Abnormal ECG When compared with ECG of 16-May-2025 20:13, (unconfirmed) No significant change was found Confirmed by Josué Rose ([id number]) on 05/17/2025 3:01:11 PM Referred By: REFERRED SELF Confirmed By: Josué Rose
--- NOTE | 2025-05-17 15:07 | Electrocardiogram Report ---
Test Reason : Blood Pressure : */* mmHG Vent. Rate : 87 BPM Atrial Rate : 87 BPM P-R Int : 122 ms QRS Dur : 92 ms QT Int : 372 ms P-R-T Axes : 41 -36 84 degrees QTcB Int : 447 ms Normal sinus rhythm Possible Left atrial enlargement Left axis deviation Minimal voltage criteria for LVH, may be normal variant Abnormal ECG When compared with ECG of 16-Nov-2024 13:10, QRS axis Shifted left T wave inversion now evident in Lateral leads Confirmed by Josué Rose ([id number]) on 05/17/2025 3:06:35 PM Referred By: REFERRED SELF Confirmed By: Josué Rose
[2025-05-17] MEDS: BACLOFEN 10 MG TAB PO STA (19:49)
[2025-05-17] MEDS ORDERED: GABAPENTIN 300 MG CAP PO SCH (21:00)
[2025-05-18 07:00] LABS: Hematocrit (blood only) 36.6 % (42.0-52.0); Hemoglobin 11.8 g/dl (14.0-18.0); Immature Granulocytes # (auto) 0.04 K/uL (0.01-0.20); Immature Granulocytes % (auto) 0.5 %; Mean Corpuscular Hemoglobin 28.6 pg (25.0-34.0); Mean Corpuscular Volume 88.6 fL (80.0-100.0); Platelet Count 194 K/uL (130-400); RDW Standard Deviation 48.2 fL (36.4-46.3); Red Blood Count 4.13 M/uL (4.70-6.10); White Blood Count 7.46 K/ul (4.8-10.8)
[2025-05-18 07:28] LABS: Anion Gap 8.0 (3-11); Blood Urea Nitrogen 20.0 mg/dl (6-23); Calcium 9.4 mg/dl (8.6-10.3); Carbon Dioxide 29.0 mmol/L (21-32); Chloride 107.0 mmol/L (98-107); Creatinine Clr Calc Pharmacy 45.3 ml/min; Glucose 129.0 mg/dl (70-99(Fasting)); Potassium 3.7 mmol/L (3.5-5.1); Sodium 144.0 mmol/L (136-145)
--- NOTE | 2025-05-18 09:12 | Surgery Progress Note ---
Date of Service May 18, 2025 Assessment & Plan (1) SBO (small bowel obstruction): Plan: 69M with PSHx of aortic dissection followed by Ex lap and small bowel resection for ischemic bowel. CT revealed significant stomach and proximal SB distention. Multiple attempts at NGT placement had been unsuccessful. He is afebrile, HD stable and leukocytosis resolved this am. This patient is new to me today and seems quite comfortable without abdominal distention this am. He does admit to some mild nausea and no further flatus this am. KUB is pending F/U KUB Maintain NPO for now Recommend PT Get pt up OOB to chair Admission and Anticipated Discharge Date Admission Date: May 16, 2025 Subjective Denies abdominal pain this am. Reportedly had passed some flatus and tried some sips but developed emesis. This am he is with some mild nausea. Physical Exam Constitutional: + cachectic and + frail appearing; not i n distress and not diaphoretic Respiratory: normal respiratory effort; no respiratory distress, no labored breathing and does not use accessory muscles Gastrointestinal (Abdomen): Inspection/Auscultation: abdomen not distended Percussion/Palpation: abdomen soft; abdomen nontender and no guarding Results & Data Vital Signs (Past 12 Hours) Vital Signs Temp Pulse Pulse Resp BP Pulse Ox O2 Del Method 05/18/25 07:50 36.4 C L 86 18 139/73 98 Room Air 05/18/25 07:33 78 05/18/25 03:14 37.0 C 84 18 147/73 H 95 Room Air 05/17/25 23:28 36.8 C 83 18 147/79 H 96 Room Air 05/17/25 22:10 84 PG Care Time/CCT Total # of Minutes Spent Total Time Spent with Patient: Total time spent is greater than 50% in coordination of care (as documented) at patient's floor/unit and/or counseling patient: Coding Level of Care Code 13213 SUB INP/OBS CARE 12/10MIN Diagnoses SBO (small bowel obstruction) K56.609
--- NOTE | 2025-05-18 09:31 | XRay Report ---
KUB HISTORY: sbo COMPARISON STUDY: 05/16/2025 FINDINGS: There is moderate retained stool. There is stable left upper quadrant small bowel distentio n measuring up to 6 cm diameter. No colonic distention seen. No gross free air. IMPRESSION: Stable small bowel distention. ACT 112: Negative or not required by law. The above report was generated using voice recognition software. It may contain grammatical, syntax o r spelling errors. Electronically signed by: Shiv Ricardo M.D. 05/18/2025 9:29 AM
--- NOTE | 2025-05-18 12:04 | Hospitalist Progress Note ---
Date of Service May 18, 2025 Assessment & Plan (1) SBO (small bowel obstruction): Plan: 69-year-old male with past medical history significant for dyslipidemia, prediabetes, history of right upper lung lung cancer, COPD, allergic rhinitis, abdominal aortic aneurysm, dissection of aorta s/p repair, paroxysmal atrial fibrillation, systolic congestive heart failure, history of CAD, severe protein calorie malnutrition, dysphagia, GERD, history of malignant melanoma of skin, history of CVA, history of cardiac arrest presents with several episodes of nausea vomiting and found to have small bowel obstruction. Patient lives with his . Son is also in the room. Since yesterday night patient having multiple episodes of vomiting. Some abdominal discomfort. Had normal bowel movements in the morning. Because of nausea and vomiting was brought to the hospital and found to have small bowel obstruction. Patient currently denies any abdominal pain. Denies any headache. Denies any chest pain. Denies shortness of breath. No nausea. No cough. No fevers. Hemodynamics are okay. After dose of morphine patient blood pressure dropped but improved with the fluids. Patient initially refused NG tube but as he was having again episode of nausea/vomiting surgery tried to attempt NG tube placement but was not successful. Surgery also talked with the [facility] about the CAT scan findings and was thought to be expected findings from the recent aortic dissection. Currently hemodynamics are okay. On November 16 2024 patient presented to [facility] ED with chest pain and inability to move his legs and in ED had a PEA arrest and was shocked once and taken to the [facility] [employer] [facility] where he was found to have ascending aortic dissection and which was confirmed with a CAT scan which showed ascending aortic dissection extending through the arch and down to the iliac arteries and also noted a pericardial effusion of which about 150 mL bloody fluid was drained. He required epi and levo drips and transferred to [facility]. At [facility] was directly taken to the OR underwent aortic dissection repair and was transferred to critical care. Required support of multiple pressors which were weaned over time. Required multiple blood products. Postoperative A-fib treated with IV amiodarone as well as oral. His abdomen was distended after surgery and CAT scan was concerning for ischemic colitis as well as dissection/occlusion of his SMA. He was taken to the OR and was status post expiratory laparotomy by general surgery on 11/17/2024 at which point his abdomen was left open. He went for delayed chest closure and he underwent cecal wedge/partial colectomy and his abdomen was closed a few days later. He was placed on tube feeds. CT head showed multiple strokes and was not able to follow commands or move his extremities. He was status post tracheostomy and PEG tube placement on 11/25/2024. His trach was removed on 12/15/2024. He was discharged to SNF on 12/22/2024. Currently patient is able to eat regular food. PEG tube was removed. Ambulates with a walker. Alert and oriented and able to speak and converse. As per family he sometimes mixes words Patient also has history of melanoma of lower lip s/p surgical resection/radiation treatment completed on 10/19/2020. He presented again with right facial pain and MRI brain revealing right CPA/Meckel's cave enhancing lesion. 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 Patient had PET scan recently which seems did not showed any metastatic lesion. 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 Small bowel obstruction Presents with nausea, vomiting and abdominal pain Recently surgery in November 2024; had undergone extensive surgery for ischemic colitis. Had PEG/tracheostomy which was removed over the course of next few months Conservative management N.p.o., IV fluids, IV Tylenol as needed KUB today shows persistent of small bowel obstruction. 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 Needs follow-up as outpatient Paroxysmal atrial fibrillation Postop- monitor in telemetry History of congestive CHF EF of 45% in November 2024 EF 52% in February 2025 Monitor for volume overload History of CVA Post aortic dissection On statin Followed with neurology. No antiplatelets per neurology for now BPH On finasteride to start when able to take p.o. DVT prophylaxis SCDs Disposition Telemetry Full code Please note the above document was generated using voice recognition software. It may contain grammatical, syntax or spelling errors. Any formal questions or concerns about the content, text or information contained within the body of this dictation should be directly addressed to the provider for clarification Admission and Anticipated Discharge Date Admission Date: May 16, 2025 Subjective Patient seen and examined at bedside. He still nauseous; has vomiting. Denies any abdominal pain. He has not had bowel movement. Review of Systems Review of Systems: All systems reviewed & are unremarkable except as noted in Subjective Physical Exam Physical Exam: Constitutional: Alert oriented x 3; not in distress. Respiratory: normal respiratory effort, lungs clear to auscultation, no wheeze, rales, rhonchi. Normal insp/exp effort, no accessory muscle use Cardiovascular: RRR, no murmur, no edema Vessels: no JVD or carotid bruit Chest: normal inspection of chest Abdomen: Slightly distended. Nontender Musculoskeletal: no cyanosis or clubbing, extremities motor strength 5/5 Skin: no rashes, warm and dry normal turgor Neurologic: PERRL, EOMI, accommodation nl, no face palsy, no dysarthria CN's II- XI intact bilaterally and moves all extremities Results & Data Results & Data Vital Signs (Past 12 Hours) Vital Signs Temp Pulse Pulse Resp BP Pulse Ox O2 Del Method 05/18/25 11:30 36.7 C 72 20 166/75 H 96 Room Air 05/18/25 08:00 Room Air 05/18/25 07:50 36.4 C L 86 18 139/73 98 Room Air 05/18/25 07:33 78 05/18/25 03:14 37.0 C 84 18 147/73 H 95 Room Air
[2025-05-18] MEDS: PROMETHAZINE 12.5 MG/50.5 ML BAG IV STA (19:43)
[2025-05-18] MEDS: KETOROLAC TROMETHAMINE 15 MG/ML VIAL IV ONE (22:10)
[2025-05-18] MEDS: METOCLOPRAMIDE HCL INJ 5 MG/ML 2 ML VIAL IV ONE (22:11)
[2025-05-18] MEDS: HEPARIN SOD 5,000 UNIT/0.5 ML VIAL SQ SCH (22:12)
--- NOTE | 2025-05-19 00:19 | CT Scan Report ---
Exam(s): CT NECK SOFT TISSUE Without Contrast EXAM: CT Neck Without Intravenous Contrast CLINICAL HISTORY: Reason for exam: sob. throat swelling?. TECHNIQUE: Axial computed tomography images of the neck without intravenous contrast. CTDI is 11.24 mGy and DLP is 309.48 mGy-cm. Automated exposure control was utilized for the study. A dose lowering technique was utilized adhering to the principles of ALARA. COMPARISON: No relevant prior studies available. FINDINGS: Study is limited secondary to motion artifact. Nasal cavity/septum: Unremarkable. Nasopharynx: Unremarkable. Oropharynx: Unremarkable. No significant tonsillar enlargement. Hypopharynx: Unremarkable. Larynx: Unremarkable. Normal epiglottis. Trachea: Unremarkable. Retropharyngeal space: Unremarkable. Submandibular/parotid glands: Unremarkable. Glands are normal in size. Thyroid: Tiny thyroid nodules. No enlarged or calcified nodules. Bones/joints: No acute fracture. Soft tissues: Fluid-filled esophagus with thickening and edema of the esophageal wall. Vasculature: No acute findings. Lymph nodes: Unremarkable. No lymphadenopathy. Sinuses: Unremarkable as visualized. No acute sinusitis. Lung apices: Right pleural effusion. IMPRESSION: Findings concerning for esophagitis with fluid filled esophagus, which may represent reflux or stenosis of the distal esophagus. Small right pleural effusion. Electronically signed by: Urszula Andrade MD 05/19/25 00:18 AM
[2025-05-19] MEDS: PANTOprazole 40 MG/10 ML SYR IV ONE (03:30)
[2025-05-19 05:05] LABS: Hematocrit (blood only) 31.5 % (42.0-52.0); Hemoglobin 10.5 g/dl (14.0-18.0); Immature Granulocytes # (auto) 0.01 K/uL (0.01-0.20); Immature Granulocytes % (auto) 0.2 %; Mean Corpuscular Hemoglobin 29.2 pg (25.0-34.0); Mean Corpuscular Volume 87.5 fL (80.0-100.0); Platelet Count 164 K/uL (130-400); RDW Standard Deviation 46.5 fL (36.4-46.3); Red Blood Count 3.60 M/uL (4.70-6.10); White Blood Count 4.74 K/ul (4.8-10.8)
[2025-05-19 05:20] LABS: Anion Gap 8.0 (3-11); Blood Urea Nitrogen 20.0 mg/dl (6-23); Calcium 8.9 mg/dl (8.6-10.3); Carbon Dioxide 24.0 mmol/L (21-32); Chloride 114.0 mmol/L (98-107); Creatinine Clr Calc Pharmacy 46.4 ml/min; Glucose 83.0 mg/dl (70-99(Fasting)); Potassium 3.3 mmol/L (3.5-5.1); Sodium 146.0 mmol/L (136-145)
[2025-05-19] MEDS: DEXTROSE 5% 1,000 ML IV SCH (07:30)
[2025-05-19] MEDS: PANTOprazole 40 MG/10 ML SYR IV SCH (07:36)
--- NOTE | 2025-05-19 08:11 | Gastrointestinal Consultation ---
Date of Consultation May 19, 2025 Assessment & Plan (1) SBO (small bowel obstruction): Clinical picture consistent with small bowel obstruction. Etiology likely secondary to adhesions from recent exploratory laparotomy. Less likely to development of a ischemic stricture related to his possible ischemic bowel when hospitalized for his aortic dissection. Clinically seems to be resolving with recent passage of flatus. Will repeat x-ray today continue n.p.o. and IV fluids. History of Present Illness Reason for Consultation: Small bowel obstruction Attending Physician: Sukhi Buchanan MD History of Present Illness Patient presents with sudden onset of abdominal pain nausea and vomiting 1 day prior to admission. Imaging on admission consistent with a small bowel obstruction. Earlier in the year he had a significant cardiac event PEA cardiac arrest, aortic dissection complicated by possible ischemic bowel underwent an exploratory laparotomy with a partial colon resection. Had a prolonged recovery postsurgery requiring PEG tube feedings. He had been recovering well slowly until this acute event. He has multiple comorbidities as listed below. Over the last several hours he has been feeling better with no further vomiting and has passed flatus. Allergies Allergy/AdvReac Type Severity Reaction Status Date / Time dexamethasone Allergy Severe DIFFICULTY Verified 05/16/25 19:29 BREATHING/COUGH/HICCUPS adhesive tape Allergy Mild SKIN Verified 05/16/25 19:29 IRRITATION Home Medications Medication Instructions Recorded Confirmed Type multivitamin 1 tab PO DAILY 01/31/21 05/16/25 History sour valadez extract 1,000 mg 2,000 mg PO BID 10/06/22 05/16/25 History capsule (Tart Valadez Extract) Better Lungs 2 cap PO DAILY 09/10/24 05/16/25 History atorvastatin 20 mg tablet 10 mg PO HS 09/10/24 05/16/25 History bitter melon extract 750 mg tablet 750 mg PO DAILY 04/26/25 05/16/25 History finasteride 5 mg tablet 5 mg PO DAILY 04/26/25 05/16/25 History folic acid 1 mg tablet 1 mg PO DAILY 04/26/25 05/16/25 History gabapentin 300 mg capsule 300 mg PO HS 04/26/25 05/16/25 History kidney health bladder support 1 tab PO DAILY 04/26/25 05/16/25 History acetaminophen 300 mg-codeine 30 mg 2 tab PO Q6H PRN PAIN/MODERATE, 05/16/25 05/16/25 History tablet SEVERE acetaminophen 500 mg tablet 500 mg PO Q6H PRN PAIN/FEVER 05/16/25 05/16/25 History (Tylenol Extra Strength) ascorbic acid (vitamin C) 500 mg 500 mg PO DAILY 05/16/25 05/16/25 History tablet (Vitamin C) cyanocobalamin (vitamin B-12) 100 100 mcg PO DAILY 05/16/25 05/16/25 History mcg tablet (Vitamin B-12) duloxetine 30 mg capsule,delayed 30 mg PO BID 05/16/25 05/16/25 History release ferrous sulfate 325 mg (65 mg 325 mg PO WK 05/16/25 05/16/25 History iron) tablet gabapentin 100 mg capsule 100 mg PO QAM 05/16/25 05/16/25 History ibuprofen 200 mg tablet (Motrin IB) 200 mg PO Q6H PRN PAIN/FEVER 05/16/25 05/16/25 History magnesium oxide 800 mg PO DAILY 05/16/25 05/16/25 History omega-3 fatty acids 1,000 mg 2,000 mg PO BID 05/16/25 05/16/25 History capsule ondansetron 4 mg disintegrating 4 mg PO Q8H PRN NAUSEA/VOMITING 05/16/25 05/16/25 History tablet potassium gluconate 600 mg (99 mg) 600 mg PO DAILY 05/16/25 05/16/25 History tablet turmeric root extract 500 mg 500 mg PO DAILY 05/16/25 05/16/25 History capsule vitamin B complex 1 tab PO DAILY 05/16/25 05/16/25 History vitamin D3 125 mcg (5,000 1 cap PO QAM 05/16/25 05/16/25 History unit)-vitamin K2 100 mcg capsule Patient History Medical History Post op infection (~08/2020) mild post operative infection of mouth rx: Clindamycin Surgical History Mass of upper lobe of right lung 04-02-22 Robotic right VATS (thoracoscopy) Upper lobectomy and kiran dissection. Jose Pineda History of surgical procedure on mouth (08/31/20) excision of sublabial mass with repair History of surgical procedure on mouth (08/20/20) division of Keagan flap and debulking History of surgical procedure on mouth (07/20/20) re-excision of lower lip History of surgical procedure on mouth (07/13/20) re-excision of lesion with Keagan flap reconstruction from rt upper lip Hx of biopsy (07/09/20) wedge resection of 1/2 of lower lip with SLN bx Hx of repair of rotator cuff (~2004) History of repair of rotator cuff (~2003) Family History Denies family history of Ovarian cancer Prostate cancer Myocardial infarction Breast cancer Colorectal cancer Social History Smoking Status: Former smoker Tobacco Type: Cigarettes Age Started Using Tobacco: 16; Age Quit Using Tobacco: 65; packs per day: 1; Second Hand Exposure: No; Do You Dip or Chew Tobacco: No; Hx Alcohol Use: No Hx Substance Use: No Preferred Language: Romanian Communication Ability: Effective Visual Impairment: No Limitations Hearing Ability: Normal Fisher Trawl Net Required: No Beliefs That Will Affect Care: None marital status: Current Living Situation: Spouse current occupational status: employed 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 [employer] How many Children do You have: 1 Feels Safe at Home: Yes Childhood Exposure to Second-Hand Smoke: Yes Diet: regular Diet Comment: "I eat all that I can" caffeine: Yes (coffee 2 cups per day) during the past year weight has: remained stable Dental Care, Regularly: No Physical Activity Frequency: Daily Physical Activity Frequency Comment: "I'm a pretty active person" Seatbelt Use: never Sunscreen Use: No Assistive Devices: Cane and Walker Review of Systems Review of Systems: No fever No chills No SOB No CP No Abd pain Physical Exam Physical Exam: Eyes; anicteric HENT No masses Chest clear to A Cor S1, S2 physiologic Abd: softer nontender no masses bowel sounds hypoactive Ext no edema Results & Data Vital Signs (Past 12 Hours) Vital Signs Temp Pulse Pulse Resp BP BP Pulse Ox 05/19/25 07:56 37.3 C 92 H 16 145/72 H 95 05/19/25 02:29 36.5 C 81 18 134/66 95 05/18/25 23:10 85 05/18/25 22:34 36.9 C 82 18 168/80 H 95 O2 Del Method 05/19/25 07:56 Room Air 05/19/25 02:29 Room Air 05/18/25 23:10 05/18/25 22:34 Room Air Laboratory Results Laboratory Results - last 48 hr 05/17/25 05/18/25 05/18/25 06:18 06:37 21:44 WBC 7.46 RBC 4.13 L Hgb 11.8 L Hct 36.6 L MCV 88.6 MCH 28.6 MCHC 32.2 RDW Std Deviation 48.2 H RDW Coeff of Navarro 14.9 H Plt Count 194 MPV 10.1 Immature Gran % (Auto) 0.5 Neut % (Auto) 74.0 Lymph % (Auto) 12.5 Castro % (Auto) 12.6 Eos % (Auto) 0.1 Baso % (Auto) 0.3 Neut # (Auto) 5.52 Lymph # (Auto) 0.93 L Castro # (Auto) 0.94 H Eos # (Auto) 0.01 Baso # (Auto) 0.02 Immature Gran # (Auto) 0.04 Sodium 144 Potassium 3.7 Chloride 107 Carbon Dioxide 29 Anion Gap 8 BUN 20 Creatinine 1.22 D Est Cr Clr Drug Dosing 45.3 eGFR 64.98 BUN/Creatinine Ratio 16.4 Glucose 129 H Estimat Average Glucose 126 Hemoglobin A1c 6.0 H Calcium 9.4 Troponin I High Sens 22.4 H D 05/19/25 04:48 WBC 4.74 L RBC 3.60 L Hgb 10.5 L Hct 31.5 L MCV 87.5 MCH 29.2 MCHC 33.3 RDW Std Deviation 46.5 H RDW Coeff of Navarro 14.5 Plt Count 164 MPV 10.0 Immature Gran % (Auto) 0.2 Neut % (Auto) 56.4 Lymph % (Auto) 23.4 Castro % (Auto) 19.0 Eos % (Auto) 0.6 Baso % (Auto) 0.4 Neut # (Auto) 2.67 Lymph # (Auto) 1.11 L Castro # (Auto) 0.90 H Eos # (Auto) 0.03 Baso # (Auto) 0.02 Immature Gran # (Auto) 0.01 Sodium 146 H Potassium 3.3 L Chloride 114 H Carbon Dioxide 24 Anion Gap 8 BUN 20 Creatinine 1.19 Est Cr Clr Drug Dosing 46.4 eGFR 66.95 BUN/Creatinine Ratio 16.8 Glucose 83 Estimat Average Glucose Hemoglobin A1c Calcium 8.9 Troponin I High Sens 23.5 H Diagnostic Findings KUB X-Ray 05/18/25 07:00 KUB HISTORY: sbo COMPARISON STUDY: 05/16/2025 FINDINGS: There is moderate retained stool. There is stable left upper quadrant small bowel distention measuring up to 6 cm diameter. No colonic distention seen. No gross free air. IMPRESSION: Stable small bowel distention. ACT 112: Negative or not required by law. The above report was generated using voice recognition software. It may contain grammatical, syntax or spelling errors. Electronically signed by: Shiv Ricardo M.D. 05/18/2025 9:29 AM Soft Tissue Neck CT 05/18/25 20:59 Exam(s): CT NECK SOFT TISSUE Without Contrast EXAM: CT Neck Without Intravenous Contrast CLINICAL HISTORY: Reason for exam: sob. throat swelling?. TECHNIQUE: Axial computed tomography images of the neck without intravenous contrast. CTDI is 11.24 mGy and DLP is 309.48 mGy-cm. Automated exposure control was utilized for the study. A dose lowering technique was utilized adhering to the principles of ALARA. COMPARISON: No relevant prior studies available. FINDINGS: Study is limited secondary to motion artifact. Nasal cavity/septum: Unremarkable. Nasopharynx: Unremarkable. Oropharynx: Unremarkable. No significant tonsillar enlargement. Hypopharynx: Unremarkable. Larynx: Unremarkable. Normal epiglottis. Trachea: Unremarkable. Retropharyngeal space: Unremarkable. Submandibular/parotid glands: Unremarkable. Glands are normal in size. Thyroid: Tiny thyroid nodules. No enlarged or calcified nodules. Bones/joints: No acute fracture. Soft tissues: Fluid-filled esophagus with thickening and edema of the esophageal wall. Vasculature: No acute findings. Lymph nodes: Unremarkable. No lymphadenopathy. Sinuses: Unremarkable as visualized. No acute sinusitis. Lung apices: Right pleural effusion. IMPRESSION: Findings concerning for esophagitis with fluid filled esophagus, which may represent reflux or stenosis of the distal esophagus. Small right pleural effusion. Electronically signed by: Urszula Andrade MD 05/19/25 00:18 AM PG Care Time/CCT Total # of Minutes Spent Total Time Spent with Patient: Total time spent is greater than 50% in coordination of care (as documented) at patient's floor/unit and/or counseling patient: Coding Level of Care Code 75924 INT INP/OBS CARE MIN Diagnoses SBO (small bowel obstruction) K56.609
--- NOTE | 2025-05-19 08:43 | XRay Report ---
HISTORY: Small bowel obstruction. TECHNIQUE: Portable supine AP abdominal radiograph. COMPARISON: CT of the abdomen pelvis with contrast dated 05/16/2025. FINDINGS: Dilated loops of small bowel in the left abdomen measuring 5 cm in diameter consistent with ongoing small bowel obstruction. No obvious free air or pneumatosis. Moderate formed stool in the colon. No acute osseous abnormality. Mild degenerative changes of the spine. IMPRESSION: Persistent small bowel obstruction with dilated loop of small bowel in the left abdomen measuring up to 5 cm in diameter. Electronically signed by Jimmie Ramirez 05-19-2025 08:39 AM
--- NOTE | 2025-05-19 10:02 | Surgery Progress Note ---
<Statement entered by Regan Cruz, DO - 05/19/25 10:13> I have seen and examined this patient this am with the surgical [employer]. He has started to pass a significant amount of gas since he last vomiting. Recommended moving slowly here. Await return of full bowel function prior to initiating oral intake. Continue ambulation. He mentions episodes of severe throat pain with questionable swelling causing him the inability to breath. May consider GI or ENT consultation if this persists. Date of Service May 19, 2025 Assessment & Plan (1) Small bowel obstruction: Plan: Pt sitting at bedside with , getting up to ambulate reports throat spasms yesterday evening, was ordered US showing poss esophagitis continue Protonix, GI consulted denies sob, cp, VSS HR 92 , mild temp at 99.1 passed flatus last night and this AM last emesis was yesterday will continue with conservative treatment of SBO in hopes that there will be increase in bowel function KUB from this AM noted , showing continued small bowel dilation Continue IV fluids Pt seen and examined with Dr Cruz, will follow along closely Admission and Anticipated Discharge Date Admission Date: May 16, 2025 Subjective Pt sitting at bedside with reports throat spasms yesterday evening denies sob, cp, currently passed flatus last night and this AM last emesis was yesterday Review of Systems Respiratory: no dyspnea Cardiovascular: no chest pain Gastrointestinal: + abdominal pain; no nausea and no vomit ing Psychiatric: no confusion Physical Exam Constitutional: cooperative; no acute distress Respiratory: normal respiratory effort; no respiratory distress Gastrointestinal (Abdomen): Percussion/Palpation: + abdomen tender and abdomen soft Results & Data Vital Signs (Past 12 Hours) Vital Signs Temp Pulse Pulse Resp BP BP Pulse Ox 05/19/25 07:56 99.1 F 92 H 16 145/72 H 95 05/19/25 02:29 97.7 F 81 18 134/66 95 05/18/25 23:10 85 05/18/25 22:34 98.4 F 82 18 168/80 H 95 O2 Del Method 05/19/25 07:56 Room Air 05/19/25 02:29 Room Air 05/18/25 23:10 05/18/25 22:34 Room Air Results CBC w Diff Results: RBC 3.60 M/uL (4.70-6.10) L 05/19/25 WBC 4.74 K/ul (4.8-10.8) L 05/19/25 Hgb 10.5 g/dl (14.0-18.0) L 05/19/25 Hct 31.5 % (42.0-52.0) L 05/19/25 MCV 87.5 fL (80.0-100.0) 05/19/25 MCH 29.2 pg (25.0-34.0) 05/19/25 MCHC 33.3 g/dL (32.0-36.0) 05/19/25 RDW Standard Deviation 46.5 fL (36.4-46.3) H 05/19/25 RDW Coefficient of Variation 14.5 % (11.5-14.5) 05/19/25 Plt Count 164 K/uL (130-400) 05/19/25 MPV 10.0 fL (9.4-12.4) 05/19/25 Neutrophils (%) (Auto) 56.4 % 05/19/25 Lymphocytes (%) (Auto) 23.4 % 05/19/25 Monocytes # (Auto) 0.90 K/uL (0.11-0.59) H 05/19/25 Eosinophils # (Auto) 0.03 K/uL (0.00-0.50) 05/19/25 Immature Granulocyte % (Auto) 0.2 % 05/19/25 Neutrophils # (Auto) 2.67 K/uL (1.40-6.50) 05/19/25 Lymphocytes # (Auto) 1.11 K/uL (1.20-3.40) L 05/19/25 Monocytes # (Auto) 0.90 K/uL (0.11-0.59) H 05/19/25 Eosinophils # (Auto) 0.03 K/uL (0.00-0.50) 05/19/25 Basophils # (Auto) 0.02 K/uL (0.00-0.20) 05/19/25 Immature Granulocyte # (Auto) 0.01 K/uL (0.01-0.20) 5 PG Care Time/CCT Total # of Minutes Spent Total Time Spent with Patient: Total time spent is greater than 50% in coordination of care (as documented) at patient's floor/unit and/or counseling patient: Coding Level of Care Code 69274 SUB INP/OBS CARE 12/10MIN Diagnoses Small bowel obstruction K56.609
--- NOTE | 2025-05-19 12:42 | Cardiology Consultation ---
Date of Consultation May 19, 2025 Assessment & Plan (1) Troponin level elevated: Plan This is a 69-year-old male with past medical history significant for dyslipidemia, prediabetes, history of right upper lung lung cancer, COPD, recent history of aortic dissection s/p repair, now admitted with SBO. On 05/17/25 initial hsTroponin was 12.2, on 05/18/25 it was 22.4, on 05/19 it was 23.5. The patient endorses chest pain only while vomiting. Of note, he had a coronary angiogram on 11/16/24 which showed non-obstructive CAD. Denies exertional angina. (+) recent nausea and vomiting. No lower extremity edema. EKG shows Lateral T wave inversions which are very similar to his EKG from 09/10/24. 1. Elevated Troponin with Lateral T wave inversions -his EKG is similar to the one from 09/10/24 -clinically, this is not consistent with unstable angina or AL -recommend no further checking of hsTroponins at this time unless he begins to have anginal-like chest pain -mild troponin elevation is likely due to hypovolemia due to Vomiting and baseline non-obstructive CAD. I provided 50 min of care to the patient in regards to management of elevated troponin and EKG changes. Miguelito Gregory MD History of Present Illness Reason for Consultation: Abnormal EKG and Troponin Elevation Attending Physician: Sukhi Buchanan MD History of Present Illness This is a 69-year-old male with past medical history significant for dyslipidemia, prediabetes, history of right upper lung lung cancer, COPD, recent history of aortic dissection s/p repair, now admitted with SBO. On 05/17/25 initial hsTroponin was 12.2, on 05/18/25 it was 22.4, on 05/19 it was 23.5. The patient endorses chest pain only while vomiting. Of note, he had a coronary angiogram on 11/16/24 which showed non-obstructive CAD. Denies exertional angina. (+) recent nausea and vomiting. No lower extremity edema. EKG shows Lateral T wave inversions which are very similar to his EKG from 09/10/24. Allergies Allergy/AdvReac Type Severity Reaction Status Date / Time dexamethasone Allergy Severe DIFFICULTY Verified 05/16/25 19:29 BREATHING/COUGH/HICCUPS adhesive tape Allergy Mild SKIN Verified 05/16/25 19:29 IRRITATION Home Medications Medication Instructions Recorded Confirmed Type multivitamin 1 tab PO DAILY 01/31/21 05/16/25 History sour valadez extract 1,000 mg 2,000 mg PO BID 10/06/22 05/16/25 History capsule (Tart Valadez Extract) Better Lungs 2 cap PO DAILY 09/10/24 05/16/25 History atorvastatin 20 mg tablet 10 mg PO HS 09/10/24 05/16/25 History bitter melon extract 750 mg tablet 750 mg PO DAILY 04/26/25 05/16/25 History finasteride 5 mg tablet 5 mg PO DAILY 04/26/25 05/16/25 History folic acid 1 mg tablet 1 mg PO DAILY 04/26/25 05/16/25 History gabapentin 300 mg capsule 300 mg PO HS 04/26/25 05/16/25 History kidney health bladder support 1 tab PO DAILY 04/26/25 05/16/25 History acetaminophen 300 mg-codeine 30 mg 2 tab PO Q6H PRN PAIN/MODERATE, 05/16/25 05/16/25 History tablet SEVERE acetaminophen 500 mg tablet 500 mg PO Q6H PRN PAIN/FEVER 05/16/25 05/16/25 History (Tylenol Extra Strength) ascorbic acid (vitamin C) 500 mg 500 mg PO DAILY 05/16/25 05/16/25 History tablet (Vitamin C) cyanocobalamin (vitamin B-12) 100 100 mcg PO DAILY 05/16/25 05/16/25 History mcg tablet (Vitamin B-12) duloxetine 30 mg capsule,delayed 30 mg PO BID 05/16/25 05/16/25 History release ferrous sulfate 325 mg (65 mg 325 mg PO WK 05/16/25 05/16/25 History iron) tablet gabapentin 100 mg capsule 100 mg PO QAM 05/16/25 05/16/25 History ibuprofen 200 mg tablet (Motrin IB) 200 mg PO Q6H PRN PAIN/FEVER 05/16/25 05/16/25 History magnesium oxide 800 mg PO DAILY 05/16/25 05/16/25 History omega-3 fatty acids 1,000 mg 2,000 mg PO BID 05/16/25 05/16/25 History capsule ondansetron 4 mg disintegrating 4 mg PO Q8H PRN NAUSEA/VOMITING 05/16/25 05/16/25 History tablet potassium gluconate 600 mg (99 mg) 600 mg PO DAILY 05/16/25 05/16/25 History tablet turmeric root extract 500 mg 500 mg PO DAILY 05/16/25 05/16/25 History capsule vitamin B complex 1 tab PO DAILY 05/16/25 05/16/25 History vitamin D3 125 mcg (5,000 1 cap PO QAM 05/16/25 05/16/25 History unit)-vitamin K2 100 mcg capsule Patient History Medical History Post op infection (~08/2020) mild post operative infection of mouth rx: Clindamycin Surgical History Mass of upper lobe of right lung 04-02-22 Robotic right VATS (thoracoscopy) Upper lobectomy and kiran dissection. Jose Pineda History of surgical procedure on mouth (08/31/20) excision of sublabial mass with repair History of surgical procedure on mouth (08/20/20) division of Keagan flap and debulking History of surgical procedure on mouth (07/20/20) re-excision of lower lip History of surgical procedure on mouth (07/13/20) re-excision of lesion with Keagan flap reconstruction from rt upper lip Hx of biopsy (07/09/20) wedge resection of 1/2 of lower lip with SLN bx Hx of repair of rotator cuff (~2004) History of repair of rotator cuff (~2003) Family History Denies family history of Ovarian cancer Prostate cancer Myocardial infarction Breast cancer Colorectal cancer Social History Smoking Status: Former smoker Tobacco Type: Cigarettes Age Started Using Tobacco: 16; Age Quit Using Tobacco: 65; packs per day: 1; Second Hand Exposure: No; Do You Dip or Chew Tobacco: No; Hx Alcohol Use: No Hx Substance Use: No Preferred Language: Frisian Communication Ability: Effective Visual Impairment: No Limitations Hearing Ability: Normal Behavioral Specialist Required: No Beliefs That Will Affect Care: None marital status: Current Living Situation: Spouse current occupational status: employed 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 Physical Exam Physical Exam: GEN: AAOx3; NAD HEENT: No JVD CV: RRR; S1+S2; no M/R/G PULM: CTA b/l; no W/R/R ABD: soft; mildly distended EXT: no Lower extremity edema Results & Data Vital Signs (Past 12 Hours) Vital Signs Temp Pulse Resp BP BP Pulse Ox O2 Del Method 05/19/25 12:22 36.6 C 75 17 130/66 97 Room Air 05/19/25 07:56 37.3 C 92 H 16 145/72 H 95 Room Air 05/19/25 02:29 36.5 C 81 18 134/66 95 Room Air Results Cardiology Web EHR Widget: Electrocardiogram 05/17/25 06:27 Echocardiogram 11/16/24 21:37 Cardiac Catheterization 11/16/24 16:51 Troponin I High Sens 21.1 pg/ml (0-20) H 05/19/25 10:12 D-Dimer [id number] ug/L FEU (0-500) H* 11/16/24 15:54 APTT 58 Seconds (21-31) H 11/16/24 15:54 PT 18.6 Seconds (9.0-12.0) H 11/16/24 15:54 INR 1.8 (0.9-1.1) H 11/16/24 15:54 Sodium 146 mmol/L (136-145) H 05/19/25 04:48 Potassium 3.3 mmol/L (3.5-5.1) L 05/19/25 04:48 BUN 20 mg/dl (6-23) 05/19/25 04:48 Creatinine 1.19 mg/dl (0.6-1.4) 05/19/25 04:48 Glucose 83 mg/dl (70-99(Fasting)) 05/19/25 04:48 Hemoglobin A1c 6.0 % (4.5-5.6) H 05/17/25 06:18 Magnesium 1.9 mg/dl (1.7-2.4) 05/17/25 06:18 AST 31 U/L (13-39) 05/16/25 17:44 ALT 21 U/L (7-52) 05/16/25 17:44 WBC 4.74 K/ul (4.8-10.8) L 05/19/25 04:48 Hgb 10.5 g/dl (14.0-18.0) L 05/19/25 04:48 Plt Count 164 K/uL (130-400) 05/19/25 04:48 Echocardiogram Limited Views 11/16/24 15:30 PG Care Time/CCT Total # of Minutes Spent Total Time Spent with Patient: Total time spent is greater than 50% in coordination of care (as documented) at patient's floor/unit and/or counseling patient: [place] [address] INT INP/OBS CARE 1/40MIN Patient Type New History Detailed Exam Detailed Medical Decision Making Moderate Complexity Diagnoses Troponin level elevated R79.89 Time Spent (min) 50
--- NOTE | 2025-05-19 13:36 | Hospitalist Progress Note ---
Date of Service May 19, 2025 Assessment & Plan (1) SBO (small bowel obstruction): Plan: 69-year-old male with past medical history significant for dyslipidemia, prediabetes, history of right upper lung lung cancer, COPD, allergic rhinitis, abdominal aortic aneurysm, dissection of aorta s/p repair, paroxysmal atrial fibrillation, systolic congestive heart failure, history of CAD, severe protein calorie malnutrition, dysphagia, GERD, history of malignant melanoma of skin, history of CVA, history of cardiac arrest presents with several episodes of nausea vomiting and found to have small bowel obstruction. Patient lives with his . Son is also in the room. Since yesterday night patient having multiple episodes of vomiting. Some abdominal discomfort. Had normal bowel movements in the morning. Because of nausea and vomiting was brought to the hospital and found to have small bowel obstruction. Patient currently denies any abdominal pain. Denies any headache. Denies any chest pain. Denies shortness of breath. No nausea. No cough. No fevers. Hemodynamics are okay. After dose of morphine patient blood pressure dropped but improved with the fluids. Patient initially refused NG tube but as he was having again episode of nausea/vomiting surgery tried to attempt NG tube placement but was not successful. Surgery also talked with the [facility] about the CAT scan findings and was thought to be expected findings from the recent aortic dissection. Currently hemodynamics are okay. On November 16 2024 patient presented to [facility] ED with chest pain and inability to move his legs and in ED had a PEA arrest and was shocked once and taken to the [facility] where he was found to have ascending aortic dissection and which was confirmed with a CAT scan which showed ascending aortic dissection extending through the arch and down to the iliac arteries and also noted a pericardial effusion of which about 150 mL bloody fluid was drained. He required epi and levo drips and transferred to [facility]. At [facility] was directly taken to the OR underwent aortic dissection repair and was transferred to critical care. Required support of multiple pressors which were weaned over time. Required multiple blood products. Postoperative A-fib treated with IV amiodarone as well as oral. His abdomen was distended after surgery and CAT scan was concerning for ischemic colitis as well as dissection/occlusion of his SMA. He was taken to the OR and was status post expiratory laparotomy by general surgery on 11/17/2024 at which point his abdomen was left open. He went for delayed chest closure and he underwent cecal wedge/partial colectomy and his abdomen was closed a few days later. He was placed on tube feeds. CT head showed multiple strokes and was not able to follow commands or move his extremities. He was status post tracheostomy and PEG tube placement on 11/25/2024. His trach was removed on 12/15/2024. He was discharged to SNF on 12/22/2024. Currently patient is able to eat regular food. PEG tube was removed. Ambulates with a walker. Alert and oriented and able to speak and converse. As per family he sometimes mixes words Patient also has history of melanoma of lower lip s/p surgical resection/radiation treatment completed on 10/19/2020. He presented again with right facial pain and MRI brain revealing right CPA/Meckel's cave enhancing lesion. 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 Patient had PET scan recently which seems did not showed any metastatic lesion. 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 Small bowel obstruction Presents with nausea, vomiting and abdominal pain Recently surgery in November 2024; had undergone extensive surgery for ischemic colitis. Had PEG/tracheostomy which was removed over the course of next few months Conservative management N.p.o., IV fluids, IV Tylenol as needed Encourage ambulation Patient is passing flatus on May 19, 2025. Esophagitis- Patient had undergone soft tissue neck as he reported discomfort in his throat; finding was consistent with esophagitis with fluid-filled stomach. GI consulted; do not recommend endoscopy at this time. Continue on Protonix IV twice daily Elevated high-sensitivity troponin of undetermined significance. possible Demand Ischemia High sensitive troponin elevated to 12.2 on 05/17; up trended to 23.5. Patient reported chest pain only when vomiting. Left heart cath on 11/16/2024 showed nonobstructive CAD. 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 Needs follow-up as outpatient Paroxysmal atrial fibrillation Postop- monitor in telemetry History of congestive CHF EF of 45% in November 2024 EF 52% in February 2025 Monitor for volume overload History of CVA Post aortic dissection On statin Followed with neurology. No antiplatelets per neurology for now BPH On finasteride to start when able to take p.o. DVT prophylaxis SCDs Disposition Telemetry Full code Please note the above document was generated using voice recognition software. It may contain grammatical, syntax or spelling errors. Any formal questions or concerns about the content, text or information contained within the body of this dictation should be directly addressed to the provider for clarification Admission and Anticipated Discharge Date Admission Date: May 16, 2025 Subjective Patient reports that he is passing flatus. No more vomiting Review of Systems Review of Systems: All systems reviewed & are unremarkable except as noted in Subjective Physical Exam Physical Exam: Constitutional: Alert oriented x 3; not in distress. Respiratory: normal respiratory effort, lungs clear to auscultation, no wheeze, rales, rhonchi. Normal insp/exp effort, no accessory muscle use Cardiovascular: RRR, no murmur, no edema Vessels: no JVD or carotid bruit Chest: normal inspection of chest Abdomen: Slightly distended. Nontender Musculoskeletal: no cyanosis or clubbing, extremities motor strength 5/5 Skin: no rashes, warm and dry normal turgor Neurologic: PERRL, EOMI, accommodation nl, no face palsy, no dysarthria CN's II- XI intact bilaterally and moves all extremities Results & Data Results & Data Vital Signs (Past 12 Hours) Vital Signs Temp Pulse Resp BP BP Pulse Ox O2 Del Method 05/19/25 12:22 36.6 C 75 17 130/66 97 Room Air 05/19/25 07:56 37.3 C 92 H 16 145/72 H 95 Room Air 05/19/25 02:29 36.5 C 81 18 134/66 95 Room Air
[2025-05-19 19:36] LABS: Anion Gap 8.0 (3-11); Blood Urea Nitrogen 19.0 mg/dl (6-23); Calcium 9.1 mg/dl (8.6-10.3); Carbon Dioxide 25.0 mmol/L (21-32); Chloride 111.0 mmol/L (98-107); Creatinine Clr Calc Pharmacy 50.7 ml/min; Glucose 91.0 mg/dl (70-99(Fasting)); Potassium 3.7 mmol/L (3.5-5.1); Sodium 144.0 mmol/L (136-145)
[2025-05-19] MEDS: ATORVASTATIN 10 MG TAB PO SCH (20:16)
[2025-05-20] MEDS: ACETAMINOPHEN 1,000 MG/100 ML VIAL IV STA ×2 (05:25→17:56)
--- NOTE | 2025-05-20 06:30 | Gastroenterology Progress Note ---
Date of Service May 20, 2025 Assessment & Plan (1) SBO (small bowel obstruction): Plan: Despite the presence of the dilated small bowel loop on imaging yesterday clinically improving consistent with resolving small bowel obstruction. Recommended trial of clear liquid diet today. Admission and Anticipated Discharge Date Admission Date: May 16, 2025 Subjective Resting comfortably had several bowel movements and passed flatus through the night and yesterday. No vomiting no abdominal pain no shortness of breath no chest pain. Physical Exam Physical Exam: No acute distress Respiratory rate regular Cardiac rhythm regular Abdomen soft nontender bowel sounds present normal active Results & Data Results & Data Vital Signs (Past 12 Hours) Vital Signs Temp Pulse Pulse Resp BP Pulse Ox O2 Del Method 05/20/25 02:59 36.6 C 63 16 121/65 91 Room Air 05/19/25 23:00 68 05/19/25 22:43 36.7 C 66 18 148/69 H 95 Room Air 05/19/25 19:54 36.7 C 67 16 153/80 H 98 Room Air Diagnostic Findings KUB X-Ray 05/19/25 08:18 HISTORY: Small bowel obstruction. TECHNIQUE: Portable supine AP abdominal radiograph. COMPARISON: CT of the abdomen pelvis with contrast dated 05/16/2025. FINDINGS: Dilated loops of small bowel in the left abdomen measuring 5 cm in diameter consistent with ongoing small bowel obstruction. No obvious free air or pneumatosis. Moderate formed stool in the colon. No acute osseous abnormality. Mild degenerative changes of the spine. IMPRESSION: Persistent small bowel obstruction with dilated loop of small bowel in the left abdomen measuring up to 5 cm in diameter. Electronically signed by Jimmie Ramirez 05-19-2025 08:39 AM PG Care Time/CCT Total # of Minutes Spent Total Time Spent with Patient: Total time spent is greater than 50% in coordination of care (as documented) at patient's floor/unit and/or counseling patient: Coding Level of Care Code 24171 SUB INP/OBS CARE 2/35MIN Diagnoses SBO (small bowel obstruction) K56.609
[2025-05-20 07:55] LABS: Hematocrit (blood only) 30.1 % (42.0-52.0); Hemoglobin 10.2 g/dl (14.0-18.0); Immature Granulocytes # (auto) 0.00 K/uL (0.01-0.20); Immature Granulocytes % (auto) 0.0 %; Mean Corpuscular Hemoglobin 28.9 pg (25.0-34.0); Mean Corpuscular Volume 85.3 fL (80.0-100.0); Platelet Count 164 K/uL (130-400); RDW Standard Deviation 44.1 fL (36.4-46.3); Red Blood Count 3.53 M/uL (4.70-6.10); White Blood Count 4.17 K/ul (4.8-10.8)
[2025-05-20 08:24] LABS: Anion Gap 6.0 (3-11); Blood Urea Nitrogen 14.0 mg/dl (6-23); Calcium 8.4 mg/dl (8.6-10.3); Carbon Dioxide 26.0 mmol/L (21-32); Chloride 107.0 mmol/L (98-107); Creatinine Clr Calc Pharmacy 52.1 ml/min; Glucose 140.0 mg/dl (70-99(Fasting)); Potassium 2.9 mmol/L (3.5-5.1); Sodium 139.0 mmol/L (136-145)
[2025-05-20] MEDS: POTASSIUM CHLORIDE / WTR 10 MEQ/100 ML PLCT IV SCH (09:53)
--- NOTE | 2025-05-20 10:01 | Surgery Progress Note ---
<Statement entered by Regan Cruz, DO - 05/20/25 10:36> I have seen and examined this patient with surgical FIELD ASSEMBLY SUPERVISOR. I agree with this plan. Date of Service May 20, 2025 Assessment & Plan (1) SBO (small bowel obstruction): Plan: SbO likely resolving with +Bms and Flatus denies n/v has been OOB ambulating ok with starting sips of clear liquids go slow will follow up tomorrow pt seen and examined with Dr Cruz Admission and Anticipated Discharge Date Admission Date: May 16, 2025 Subjective denies abd pain +bm +flatus Review of Systems Constitutional: no fever and no chills Respiratory: no dyspnea Gastrointestinal: no abdominal pain, no nausea and no vomiting Physical Exam Constitutional: cooperative and comfortable Respiratory: normal respiratory effort; no respiratory distress Gastrointestinal (Abdomen): Inspection/Auscultation: abdomen not distended Percussion/Palpation: abdomen soft; abdomen nontender Results & Data Vital Signs (Past 12 Hours) Vital Signs Temp Pulse Pulse Resp BP Pulse Ox O2 Del Method 05/20/25 07:53 97.5 F L 57 L 16 111/64 97 Room Air 05/20/25 02:59 97.9 F 63 16 121/65 91 Room Air 05/19/25 23:00 68 05/19/25 22:43 98.1 F 66 18 148/69 H 95 Room Air PG Care Time/CCT Total # of Minutes Spent Total Time Spent with Patient: Total time spent is greater than 50% in coordination of care (as documented) at patient's floor/unit and/or counseling patient: Coding Level of Care Code 65099 SUB INP/OBS CARE 12/10MIN Diagnoses SBO (small bowel obstruction) K56.609
--- NOTE | 2025-05-20 11:10 | Hospitalist Progress Note ---
Date of Service May 20, 2025 Assessment & Plan (1) SBO (small bowel obstruction): Plan: 69-year-old male with past medical history significant for dyslipidemia, prediabetes, history of right upper lung lung cancer, COPD, allergic rhinitis, abdominal aortic aneurysm, dissection of aorta s/p repair, paroxysmal atrial fibrillation, systolic congestive heart failure, history of CAD, severe protein calorie malnutrition, dysphagia, GERD, history of malignant melanoma of skin, history of CVA, history of cardiac arrest presents with several episodes of nausea vomiting and found to have small bowel obstruction. Small bowel obstruction Presents with nausea, vomiting and abdominal pain Recently surgery in November 2024; had undergone extensive surgery for ischemic colitis. Had PEG/tracheostomy which was removed over the course of next few months Conservative management Patient started to have bowel movement on 05/2025 with multiple bowel movement overnight; started on a clear liquid diet; plan to monitor closely. Esophagitis- Patient had undergone soft tissue neck as he reported discomfort in his throat; finding was consistent with esophagitis with fluid-filled stomach. GI consulted; do not recommend endoscopy at this time. Continue on Protonix IV twice daily Elevated high-sensitivity troponin of undetermined significance. possible Demand Ischemia High sensitive troponin elevated to 12.2 on 05/17; up trended to 23.5. Patient reported chest pain only when vomiting. Left heart cath on 11/16/2024 showed nonobstructive CAD. 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 Needs follow-up as outpatient Paroxysmal atrial fibrillation Postop- monitor in telemetry History of congestive CHF EF of 45% in November 2024 EF 52% in February 2025 Monitor for volume overload History of CVA Post aortic dissection On statin Followed with neurology. No antiplatelets per neurology for now BPH On finasteride to start when able to take p.o. DVT prophylaxis heparin Disposition Telemetry Full code Please note the above document was generated using voice recognition software. It may contain grammatical, syntax or spelling errors. Any formal questions or concerns about the content, text or information contained within the body of this dictation should be directly addressed to the provider for clarification Admission and Anticipated Discharge Date Admission Date: May 16, 2025 Subjective Patient seen and examined at bedside. Patient is having regular bowel movements; passing flatus. Clear liquid diet started. Review of Systems Review of Systems: All systems reviewed & are unremarkable except as noted in Subjective Physical Exam Physical Exam: Constitutional: Alert oriented x 3; not in distress. Respiratory: normal respiratory effort, lungs clear to auscultation, no wheeze, rales, rhonchi. Normal insp/exp effort, no accessory muscle use Cardiovascular: RRR, no murmur, no edema Vessels: no JVD or carotid bruit Chest: normal inspection of chest Abdomen: Slightly distended. Nontender Musculoskeletal: no cyanosis or clubbing, extremities motor strength 5/5 Skin: no rashes, warm and dry normal turgor Neurologic: PERRL, EOMI, accommodation nl, no face palsy, no dysarthria CN's II- XI intact bilaterally and moves all extremities Results & Data Results & Data Vital Signs (Past 12 Hours) Vital Signs Temp Pulse Resp BP Pulse Ox O2 Del Method 05/20/25 11:04 36.3 C L 59 L 17 129/70 98 Room Air 05/20/25 07:53 36.4 C L 57 L 16 111/64 97 Room Air 05/20/25 02:59 36.6 C 63 16 121/65 91 Room Air
[2025-05-20] MEDS: POTASSIUM CHLORIDE PWD 20 MEQ PACK PO SCH (12:55)
--- NOTE | 2025-05-20 15:45 | Communication Note ---
Date of Service: May 20, 2025 Notified by nursing staff that the patient began having emesis. He was started on a clear liquid diet this AM. Patient was assessed at bedside , he reports no abd pain at rest , abd is distended, soft and TTP LUQ with grimacing, VSS. Pt was made npo and a stat KUB was ordered. Discussed with the patient and family the possibility of attempting an NGT however with the reported esophageal spasms this was deferred. The expressed concern about the regression, and is requesting the patient be transferred to [facility] where he was treated in November of this year. Discussed the findings with Dr Cruz environmental field team member surgeon and she is in agreement, Hospitalist notified.
--- NOTE | 2025-05-20 16:36 | Discharge Summary ---
Date of Service May 20, 2025 Admission HPI Per Admitting Provider 69-year-old male with past medical history significant for dyslipidemia, prediabetes, history of right upper lung lung cancer, COPD, allergic rhinitis, abdominal aortic aneurysm, dissection of aorta s/p repair, paroxysmal atrial fibrillation, systolic congestive heart failure, history of CAD, severe protein calorie malnutrition, dysphagia, GERD, history of malignant melanoma of skin, history of CVA, history of cardiac arrest presents with several episodes of nausea vomiting and found to have small bowel obstruction. Patient lives with his . Son is also in the room. Since yesterday night patient having multi ple episodes of vomitings. Some abdominal discomfort. Had normal bowel movements in the morning. Because of nausea and vomiting was brought to the hospital and found to have small bowel obstruction. Patient currently denies any abdominal pain. Denies any headache. Denies any chest pain. Denies shortness of breath. No nausea. No cough. No fevers. Hemodynamics are okay. After dose of morphine patient blood pressure dropped but improved with the fluids. Patient initially refused NG tube but as he was having again episode of nausea/vomiting surgery tried to attempt NG tube placement but was not successful. Surgery also talked with the [facility] about the CAT scan findings and was thought to be expected findings from the recent aortic dissection. Currently hemodynamics are okay. On November 16 2024 patient presented to [facility] ED with chest pain and inability to move his legs and in ED had a PEA arrest and was shocked once and taken to the [facility] where he was found to have ascending aortic dissection and which was confirmed with a CAT scan which showed ascending aortic dissection extending through the arch and down to the iliac arteries and also noted a pericardial effusion of which about 150 mL bloody fluid was drained. He required epi and levo drips and transferred to [facility]. At [facility] was directly taken to the OR underwent aortic dissection repair and was transferred to critical care. Required support of multiple pressors which were weaned over time. Required multiple blood products. Postoperative A-fib treated with IV amiodarone as well as oral. His abdomen was distended after surgery and CAT scan was concerning for ischemic colitis as well as dissection/occlusion of his SMA. He was taken to the OR and was status post expiratory laparotomy by [facility] surgery on 11/17/2024 at which point his abdomen was left open. He went for delayed chest closure and he underwent cecal wedge/partial colectomy and his abdomen was closed a few days later. He was placed on tube feeds. CT head showed multiple strokes and was not able to follow commands or move his extremities. He was status post tracheostomy and PEG tube placement on 11/25/2024. His trach was removed on 12/15/2024. He was discharged to SNF on 12/22/2024. Currently patient is able to eat regular food. PEG tube was removed. Ambulates with a walker. Alert and oriented and able to speak and converse. As per family he sometimes mixes words Patient also has history of melanoma of lower lip s/p surgical resection/radiation treatment completed on 10/19/2020. He presented again with right facial pain and MRI brain revealing right CPA/Meckel's cave enhancing lesion. 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 Patient had PET scan recently which seems did not showed any metastatic lesion. 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 Past medical history. As mentioned above Past surgical history. Ascending aortic aneurysm graft with bypass for aortic dissection. Colonoscopy. EGD. Excision of lesion of the mouth. Exploratory laparoscopy. Tracheostomy. IR biopsy. IR chest tube. Robotic thorascopic with lymphadenectomy. Partial excision of lip. Reconstruction of lip. Craniectomy posterior fossa excision. Repair of hydrocele. Closure of median sternotomy separation. Thorascopic with lobectomy right side. Social history. . Quit smoking 2019. Smoked 1 pack a day for 40 years. No alcohol use. No drug use. Family history. Mother had pacemaker. Hypertension. Father had MT. Hypertension. Admission Exam Per Admitting Provider General- Not in acute distress Head- atraumatic Eyes- PERRL. ENT- oropharynx dry Neck- supple, no JVD. Lungs- clear to auscultation no wheezing or crackles Heart- regular rate and rhythm; no murmur, no gallop. Abdomen- sluggish bowel sounds, soft, mild diffuse discomfort, no rigidity, Extremities- no pretibial edema, no erythema seen Neuro- alert, oriented x 3; PERRL, no facial palsy; no dysarthria; moves extremities Principal Diagnosis Small bowel obstruction Discharge Exam Constitutional: Alert oriented x 3; not in distress. Respiratory: normal respiratory effort, lungs clear to auscultation, no wheeze, rales, rhonchi. Normal insp/exp effort, no accessory muscle use Cardiovascular: RRR, no murmur, no edema Vessels: no JVD or carotid bruit Chest: normal inspection of chest Abdomen: Slightly distended. Nontender Musculoskeletal: no cyanosis or clubbing, extremities motor strength 5/5 Skin: no rashes, warm and dry normal turgor Neurologic: PERRL, EOMI, accommodation nl, no face palsy, no dysarthria CN's II- XI intact bilaterally and moves all extremities Discharge Data Allergies Allergy/AdvReac Type Severity Reaction Status Date / Time dexamethasone Allergy Severe DIFFICULTY Verified 05/16/25 19:29 BREATHING/COUGH/HICCUPS adhesive tape Allergy Mild SKIN Verified 05/16/25 19:29 IRRITATION Consultations 05/16/25 20:28 Consult General Surgery Routine 05/16/25 20:54 ED Decision to Admit Stat 05/19/25 08:00 Consult Cardiology Routine Consult Gastroenterology Routine Ordered Studies 05/16/25 18:02 CT abd pelvis IV con only Stat 05/18/25 20:59 CT soft tissue neck wo con Urgent Hospital Course (1) SBO (small bowel obstruction): 69-year-old male with past medical history significant for dyslipidemia, prediabetes, history of right upper lung lung cancer, COPD, allergic rhinitis, abdominal aortic aneurysm, dissection of aorta s/p repair, paroxysmal atrial fi brillation, systolic congestive heart failure, history of CAD, severe protein calorie malnutrition, dysphagia, GERD, history of malignant melanoma of skin, history of CVA, history of cardiac arrest presents with several episodes of nausea vomiting and found to have small bowel obstruction. Small bowel obstruction Presents with nausea, vomiting and abdominal pain Recently surgery in November 2024; had undergone extensive surgery for ischemic colitis. Had PEG/tracheostomy which was removed over the course of next few months Patient was admitted to medical floor, started on conservative management with iv fluids, bowel rest and ambulation. Patient started to have bowel movement on 05/2025 with multiple bowel movement overnight; started on a clear liquid diet.However, patient started to have recurrence of nausea and vomiting after starting clear liquid diet. X-ray KUB showed persistent small bowel obstruction without significant improvement. Surgery recommended transfer to [facility] given his recent hospitalization there in November 2024. Discussed with patient and who are in agreement. Discussed with on-call surgeon at [facility] who accepted the patient. Plan to continue IV fluids en-route. Esophagitis- Patient had undergone soft tissue neck as he reported discomfort in his throat; finding was consistent with esophagitis with fluid-filled stomach. GI consulted; do not recommend endoscopy at this time. Continue on Protonix IV twice daily Hypokalemia- on D5 1/2 NS with KCl, continue Please note the above document was generated using voice recognition software. It may contain grammatical, syntax or spelling errors. Any formal questions or concerns about the content, text or information contained within the body of this dictation should be directly addressed to the provider for clarification Total Time Total Time Spent Total Time Spent (In Minutes): 45 Total Time Includes: Examination of the Patient, Discharge Planning, Medication Reconciliation, Communication With Other Providers and Other Discharge Plan Discharge Items Patient Disposition: Transfer Acute Care Hospital Reason For Visit: SBO Discharge Diagnosis: Small bowel obstruction Condition on Discharge: Fair Activity: Resume your previous activity Non-emergency contact: Primary Care Provider Call non-emergency contact if: you have any medication questions and your symptoms worsen Follow-up/Referrals: Sumaya Davis MD [Primary Care Provider] - Diet: Nothing by Mouth Addtl Attending Provider Instructions: Date of Service: May 20, 2025 Current Inpatient Medications Atorvastatin Calcium (Atorvastatin 10 Mg Tab) 10 mg PO HS ELSA Stop: 06/18/25 20:59 Last Admin: 05/19/25 20:16 Dose: 10 mg Duloxetine HCl (Duloxetine Hcl 30 Mg Cap) 30 mg PO BID ELSA Stop: 06/18/25 20:59 Last Admin: 05/20/25 08:38 Dose: 30 mg Heparin Sodium (Porcine) (Heparin Sod 5,000 Unit/0.5 Ml Vial) 5,000 units SQ Q8 ELSA Stop: 06/17/25 21:59 Last Admin: 05/20/25 13:00 Dose: 5,000 units Pantoprazole Sodium (Protonix) 40 mg in 10 mls @ 5 mls/min IV BID ELSA Stop: 06/18/25 08:59 Last Admin: 05/20/25 08:38 Dose: 5 mls/min Potassium Chloride 40 meq/ (Dextrose/Sodium Chloride) 1,020 mls @ 80 mls/hr IV .[id number] ELSA Stop: 05/23/25 16:14 Ondansetron HCl (Ondansetron Inj 2 Mg/Ml 2 Ml Vial) 4 mg IV Q6H PRN PRN Reason: Nausea Stop: 06/15/25 22:08 Last Admin: 05/18/25 00:29 Dose: 4 mg Pending Studies at Discharge: No Stand-Alone Forms: My [facility] Skilled Items Patient informed of condition?: Yes DNR: No Discharge Level of Care: Other Communicable Disease: No Discharge Prognosis: Stable Lines: Peripheral IV Urinary Catheter: No Medications and DC Order Prescriptions: Continued multivitamin Tablet 1 tab PO DAILY gabapentin 300 mg capsule 300 mg PO HS kidney health bladder support 1 tab PO DAILY bitter melon extract 750 mg tablet 750 mg PO DAILY folic acid 1 mg tablet 1 mg PO DAILY finasteride 5 mg tablet 5 mg PO DAILY Tart Valadez Extract 1,000 mg capsule 2,000 mg PO BID atorvastatin 20 mg tablet 10 mg PO HS Better Lungs 2 cap PO DAILY cyanocobalamin (vitamin B-12) [Vitamin B-12] 100 mcg Tablet 100 mcg PO DAILY omega-3 fatty acids 1,000 mg Capsule 2,000 mg PO BID acetaminophen-codeine 300-30 mg tablet 2 tab PO Q6H PRN (Reason: PAIN/MODERATE, SEVERE) acetaminophen [Tylenol Extra Strength] 500 mg Tablet 500 mg PO Q6H PRN (Reason: PAIN/FEVER) Rx Instructions: TAKES ALONG WITH 1 MOTRIN 1-2XDAILY NEEDED ascorbic acid (vitamin C) [Vitamin C] 500 mg Tablet 500 mg PO DAILY ferrous sulfate 325 mg (65 mg iron) Tablet 325 mg PO WK Rx Instructions: FRIDAYS ibuprofen [Motrin IB] 200 mg Tablet 200 mg PO Q6H PRN (Reason: PAIN/FEVER) Rx Instructions: TAKES ALONG WITH 1 TYLENOL EXTRA STRENGTH 1-2 X DAY IF NEEDED. vitamin B complex Tablet 1 tab PO DAILY gabapentin 100 mg capsule 100 mg PO QAM ondansetron 4 mg Tablet,Disintegrating 4 mg PO Q8H PRN (Reason: NAUSEA/VOMITING) duloxetine 30 mg capsule,delayed release(DR/EC) 30 mg PO BID turmeric root extract 500 mg Capsule 500 mg PO DAILY potassium gluconate 600 mg (99 mg) Tablet 600 mg PO DAILY magnesium oxide 400 mg magnesium Tablet 800 mg PO DAILY vitamin D3-vitamin K2 125 mcg (5,000 unit)-100 mcg Capsule 1 cap PO QAM Discharge Orders: Discharge Order (Routine); Ordered 05/20/25 Ordered By: Sukhi Valdivia/Other Patient Handouts: A1C Admission Data Admit Date/Time: 05/16/25 21:52 Attending Provider: Sukhi Buchanan Admit Provider: Ramakrishna Thornton Primary Care Provider: Sumaya Davis Other Providers: Shiv Morales; Ramakrishna Thornton; Regan Cruz; Odilon Celeste I; Miguelito Gregory
[2025-05-20] MEDS: POTASSIUM CHLORIDE 40 MEQ in D5W AND 1/2NSS 1,000 ML IV SCH (16:52)
[2025-05-20] MEDS: D5W AND 1/2NSS + 20MEQ KCL 20 MEQ/1,000 ML BAG IV SCH (17:34)
--- NOTE | 2025-05-20 18:49 | XRay Report ---
INDICATION: Abdominal pain TECHNIQUE: Portable supine view radiograph of the abdomen was obtained. COMPARISON: Abdominal radiograph 1 day previous FINDINGS: Redemonstrated loops of air distended small bowel in the left hemiabdomen, measuring up to 5.0 cm in caliber, not appreciably changed from the previous radiograph. Evaluation for free air is limited due to supine technique. IMPRESSION: Redemonstration of air distended loops of small bowel over the left hemiabdomen measuring up to 5.0 cm in caliber, not appreciably changed from the previous radiograph and consistent with ongoing small bowel obstruction Electronically signed by Xavier Young 05-20-2025 6:47 PM
[2025-05-20 19:38] VITALS: BP 145/78; PULSE 70; RESP 18; TEMP 97.9; O2SAT 98
--- NOTE | 2025-05-22 18:21 | Electrocardiogram Report ---
Test Reason : Blood Pressure : */* mmHG Vent. Rate : 92 BPM Atrial Rate : 92 BPM P-R Int : 124 ms QRS Dur : 98 ms QT Int : 334 ms P-R-T Axes : 41 -43 61 degrees QTcB Int : 413 ms Sinus rhythm with Premature atrial complexes Left axis deviation Minimal voltage criteria for LVH, may be normal variant Abnormal ECG When compared with ECG of 17-May-2025 06:27, Premature atrial complexes are now Present Nonspecific T wave abnormality has replaced inverted T waves in Lateral leads Confirmed by Mehran Luke ([id number]) on 05/22/2025 6:20:43 PM Referred By: REFERRED SELF Confirmed By: Mehran Luke
== END 2025-05-20 20:05 | disposition short-term general hospital (02) | DRG 389 ==
LOC: ED 17:27 → EDINP 21:52 → SUATTDRO 21:52 → 2S 22:09